=== PATIENT | male | born 1980 | race Caucasian/White ===

== ENCOUNTER 2020-10-27 14:26 | Inpatient (IN) | payer OTHER ==
[2020-10-27] MEDS ORDERED: methaDONE HCL 10 MG TABLET (FOR DETOX USE ONLY) PO ONE (15:37)
[2020-10-27] MEDS ORDERED: MAG HYDROX/AL HYDROX/SIMETH 30 ML UNIT-DOSE CUP PO PRN (15:37)
[2020-10-27] MEDS ORDERED: MAGNESIUM HYDROX 2400MG/30ML ORAL SUSPENSION 30 ML CUP PO PRN (15:37)
[2020-10-27] MEDS ORDERED: IBUPROFEN 400 MG TABLET (FP) PO PRN (15:37)
[2020-10-27] MEDS ORDERED: ACETAMINOPHEN 325 MG TABLET (FP) PO PRN ×2 (15:37)
[2020-10-27] MEDS ORDERED: BISMUTH SUBSALICYLATE 524 MG/30 ML PO PRN (15:37)
[2020-10-27] MEDS ORDERED: MAGNESIUM CITRATE 300 ML BOTTLE PO PRN (15:37)
[2020-10-27] MEDS ORDERED: MENTHOL/PHENOL 1 EACH UD MM PRN (15:37)
[2020-10-27 17:23] VITALS: BMI 21.9
[2020-10-27] MEDS: NICOTINE 21 MG/24 HOURS TOPICAL PATCH TD SCH (17:56)
[2020-10-27] MEDS: diazePAM 5 MG TABLET PO PRN (18:01)
[2020-10-27] MEDS: BACITRACIN 0.9 GM PACKET TP SCH (18:04)
[2020-10-27] MEDS: PRENATAL VITAMINS W/ FOLIC ACID TABLET (FP) PO SCH (18:04)
[2020-10-27] MEDS: NICOTINE POLACRILEX 4 MG GUM BUC PRN ×2 (18:07→22:14)
[2020-10-27] MEDS: hydrOXYzine PAMOATE 25 MG CAPSULE (FP) PO SCH ×2 (18:27→22:09)
[2020-10-27] MEDS: diazePAM 5 MG TABLET PO SCH ×2 (18:27→22:08)
[2020-10-27] MEDS: cloNIDine HCL 0.1 MG TABLET PO PRN (21:05)
[2020-10-27] MEDS: THIAMINE HCL 100 MG TABLET (FP) PO SCH (22:09)
[2020-10-27] MEDS: MELATONIN 5 MG TABLETS PO SCH (22:09)
[2020-10-28] MEDS: diazePAM 5 MG TABLET PO SCH ×4 (05:44→22:10)
[2020-10-28] MEDS: hydrOXYzine PAMOATE 25 MG CAPSULE (FP) PO SCH (05:44)
[2020-10-28] MEDS: ONDANSETRON *ODT* 4 MG TABLET SL PRN (05:45)
[2020-10-28] MEDS: METHOCARBAMOL 500 MG TABLET PO PRN ×2 (05:45→17:10)
[2020-10-28] MEDS ORDERED: hydrOXYzine PAMOATE 50 MG CAPSULE (FP) PO PRN (09:23)
[2020-10-28] MEDS ORDERED: methaDONE HCL 10 MG TABLET (FOR DETOX USE ONLY) ONE (09:24)
[2020-10-28] MEDS: PRENATAL VITAMINS W/ FOLIC ACID TABLET (FP) PO SCH (10:26)
[2020-10-28] MEDS: BACITRACIN 0.9 GM PACKET TP SCH (10:27)
[2020-10-28] MEDS: NICOTINE POLACRILEX 4 MG GUM BUC PRN ×3 (10:28→22:13)
[2020-10-28 10:30] LABS: HEMATOCRIT 40.6 % (35.4-49); HEMOGLOBIN 13.4 GM/dL (11.7-16.9); MEAN CELL VOLUME 87.9 fl (80-96); MEAN PLT VOLUME 8.1 fl (7.5-11.1); PLATELET COUNT 202 10^3/uL (134-434); RBC 4.61 M/mm3 (4.00-5.60); WHITE BLOOD COUNT 5.8 K/mm3 (4.0-10.0)
[2020-10-28 10:33] LABS: CALCIUM 9.1 mg/dL (8.5-10.1)
[2020-10-28 10:34] LABS: ALBUMIN 3.2 g/dl (3.4-5.0); BLOOD UREA NITROGEN 16.4 mg/dL (7-18)
[2020-10-28 10:36] LABS: BILIRUBIN,TOTAL 0.4 mg/dL (0.2-1); TOT PROT 6.6 g/dl (6.4-8.2)
[2020-10-28 10:37] LABS: CREATININE 1.1 mg/dL (0.55-1.3)
[2020-10-28] MEDS: NICOTINE 21 MG/24 HOURS TOPICAL PATCH TD SCH (11:50)
[2020-10-28] MEDS: diazePAM 5 MG TABLET PO PRN (14:10)
[2020-10-28] MEDS: THIAMINE HCL 100 MG TABLET (FP) PO SCH (22:11)
[2020-10-28] MEDS: MELATONIN 5 MG TABLETS PO SCH (22:12)
[2020-10-28] MEDS: SUVOREXANT 10 MG TABLET PO PRN (22:12)
[2020-10-29] MEDS: diazePAM 5 MG TABLET PO SCH ×3 (05:37→22:14)
[2020-10-29] MEDS ORDERED: methaDONE HCL 10 MG TABLET (FOR DETOX USE ONLY) PO ONE (10:00)
[2020-10-29] MEDS: PRENATAL VITAMINS W/ FOLIC ACID TABLET (FP) PO SCH (10:18)
[2020-10-29] MEDS: BACITRACIN 0.9 GM PACKET TP SCH (10:19)
[2020-10-29] MEDS: ONDANSETRON *ODT* 4 MG TABLET SL PRN (10:20)
[2020-10-29] MEDS: METHOCARBAMOL 500 MG TABLET PO PRN ×2 (10:20→22:13)
[2020-10-29] MEDS: diazePAM 5 MG TABLET PO PRN ×2 (10:22→18:00)
[2020-10-29] MEDS: NICOTINE 21 MG/24 HOURS TOPICAL PATCH TD SCH (12:36)
[2020-10-29] MEDS: THIAMINE HCL 100 MG TABLET (FP) PO SCH (22:13)
[2020-10-29] MEDS: MELATONIN 5 MG TABLETS PO SCH (22:15)
[2020-10-29] MEDS: SUVOREXANT 10 MG TABLET PO PRN (22:16)
[2020-10-29] MEDS: cloNIDine HCL 0.1 MG TABLET PO PRN (22:16)
[2020-10-30] MEDS ORDERED: diazePAM 5 MG TABLET PO SCH (06:00)
[2020-10-30] MEDS: METHOCARBAMOL 500 MG TABLET PO PRN ×2 (06:04→12:41)
[2020-10-30] MEDS ORDERED: methaDONE HCL 10 MG TABLET (FOR DETOX USE ONLY) ONE (09:20)
[2020-10-30] MEDS: diazePAM 5 MG TABLET PO PRN (09:41)
[2020-10-30] MEDS: PRENATAL VITAMINS W/ FOLIC ACID TABLET (FP) PO SCH (09:43)
[2020-10-30] MEDS: NICOTINE 21 MG/24 HOURS TOPICAL PATCH TD SCH (12:41)
[2020-10-30 13:23] VITALS: BP 139/100; PULSE 69; TEMP 98
[2020-10-30] MEDS: BACITRACIN 0.9 GM PACKET TP SCH (13:31)
[2020-10-31] MEDS ORDERED: diazePAM 5 MG TABLET PO ONE (06:00)
[2020-10-31] MEDS ORDERED: methaDONE HCL 10 MG TABLET (FOR DETOX USE ONLY) PO ONE (10:00)
== END 2020-10-30 15:09 | disposition left against medical advice (07) | DRG 770 ==
LOC: YASAS 14:26 → Y6N 17:01
PROVIDERS: ADMIT Allergy & Immunology; ATTEND Allergy & Immunology
PROC: HZ2ZZZZ Detoxification Services for Substance Abuse Treatment (ICD-10-PCS; principal; 2020-10-27)
DX: F11.23 Opioid dependence with withdrawal (principal); F10.230 Alcohol dependence with withdrawal, uncomplicated; F13.20 Sedative, hypnotic or anxiolytic dependence, uncomplicated; F14.20 Cocaine dependence, uncomplicated; F15.10 Other stimulant abuse, uncomplicated; F12.10 Cannabis abuse, uncomplicated; F17.210 Nicotine dependence, cigarettes, uncomplicated; F19.280 Other psychoactive substance dependence with psychoactive substance-induced anxiety disorder; F19.282 Other psychoactive substance dependence with psychoactive substance-induced sleep disorder; F41.9 Anxiety disorder, unspecified; I10 Essential (primary) hypertension; J45.909 Unspecified asthma, uncomplicated; B18.2 Chronic viral hepatitis C; Z86.69 Personal history of other diseases of the nervous system and sense organs; Z88.8 Allergy status to other drugs, medicaments and biological substances; Z91.013 Allergy to seafood
CPT/HCPCS: 36415; 80053; 85027; 86780; 93005; 93010; C9803; J0735; Q0162; U0003; U0005

== ENCOUNTER 2021-05-24 14:08 | Inpatient (IN) | payer OTHER ==
[2021-05-24] MEDS ORDERED: ONDANSETRON *ODT* 4 MG TABLET SL PRN (15:47)
[2021-05-24] MEDS ORDERED: ACETAMINOPHEN 325 MG TABLET (FP) PO PRN ×2 (15:47)
[2021-05-24] MEDS ORDERED: MENTHOL/PHENOL 1 EACH UD MM PRN (15:47)
[2021-05-24] MEDS ORDERED: MAGNESIUM HYDROX 2400MG/30ML ORAL SUSPENSION 30 ML CUP PO PRN (15:47)
[2021-05-24] MEDS ORDERED: BISMUTH SUBSALICYLATE 524 MG/30 ML PO PRN (15:47)
[2021-05-24] MEDS ORDERED: MAGNESIUM CITRATE 300 ML BOTTLE PO PRN (15:47)
[2021-05-24] MEDS ORDERED: IBUPROFEN 400 MG TABLET (FP) PO PRN (15:47)
[2021-05-24] MEDS ORDERED: methaDONE HCL 10 MG TABLET (FOR DETOX USE ONLY) PO ONE ×2 (15:49→22:00)
[2021-05-24] MEDS ORDERED: cloNIDine HCL 0.1 MG TABLET PO PRN (15:49)
[2021-05-24 16:02] VITALS: BMI 23.3
[2021-05-24] MEDS: THIAMINE HCL 100 MG TABLET (FP) PO SCH (22:26)
[2021-05-24] MEDS: hydrOXYzine PAMOATE 25 MG CAPSULE (FP) PO SCH ×2 (22:26→22:43)
[2021-05-24] MEDS: MELATONIN 5 MG TABLETS PO SCH (22:26)
[2021-05-24] MEDS: MAG HYDROX/AL HYDROX/SIMETH 30 ML UNIT-DOSE CUP PO PRN (23:08)
[2021-05-24] MEDS: COLLOIDAL OATMEAL 1 BAR EACH TP PRN (23:10)
[2021-05-24] MEDS ORDERED: chlordiazePOXIDE HCL 25 MG CAPSULE PO PRN (23:15)
[2021-05-24] MEDS: chlordiazePOXIDE HCL 25 MG CAPSULE PO SCH (23:36)
[2021-05-25] MEDS: chlordiazePOXIDE HCL 25 MG CAPSULE PO SCH ×2 (06:14→10:21)
[2021-05-25] MEDS: hydrOXYzine PAMOATE 25 MG CAPSULE (FP) PO SCH ×5 (06:14→22:19)
[2021-05-25] MEDS ORDERED: methaDONE HCL 10 MG TABLET (FOR DETOX USE ONLY) ONE (09:48)
[2021-05-25] MEDS: METHOCARBAMOL 500 MG TABLET PO PRN ×2 (10:21→22:19)
[2021-05-25] MEDS: PRENATAL VITAMINS W/ FOLIC ACID TABLET (FP) PO SCH (10:21)
[2021-05-25] MEDS ORDERED: diazePAM 5 MG TABLET PO PRN (11:00)
[2021-05-25 11:58] LABS: HEMATOCRIT 32.3 % (35.4-49); HEMOGLOBIN 11.1 GM/dL (11.7-16.9); MCH 29.8 pg (25.7-33.7); MCHC 34.4 g/dl (32.0-35.9); MEAN CELL VOLUME 86.5 fl (80-96); PLATELET COUNT 143 10^3/uL (134-434); RBC 3.73 M/mm3 (4.00-5.60); RDW 13.1 % (11.9-15.9); WHITE BLOOD COUNT 10.3 K/mm3 (4.0-10.0)
[2021-05-25] MEDS: diazePAM 5 MG TABLET PO SCH ×3 (12:33→22:18)
[2021-05-25 13:16] LABS: CALCIUM 8.3 mg/dL (8.5-10.1)
[2021-05-25 13:17] LABS: BLOOD UREA NITROGEN 25.1 mg/dL (7-18)
[2021-05-25 13:21] LABS: TOT PROT 5.8 g/dl (6.4-8.2)
[2021-05-25 13:22] LABS: BILIRUBIN,TOTAL 0.7 mg/dL (0.2-1)
[2021-05-25] MEDS: diazePAM 5 MG TABLET PO PRN (19:17)
[2021-05-25] MEDS: MELATONIN 5 MG TABLETS PO SCH (22:17)
[2021-05-25] MEDS: THIAMINE HCL 100 MG TABLET (FP) PO SCH (22:19)
[2021-05-26] MEDS: diazePAM 5 MG TABLET PO PRN ×3 (00:33→17:40)
[2021-05-26] MEDS: MAG HYDROX/AL HYDROX/SIMETH 30 ML UNIT-DOSE CUP PO PRN (00:33)
[2021-05-26] MEDS ORDERED: chlordiazePOXIDE HCL 25 MG CAPSULE PO SCH (05:00)
[2021-05-26] MEDS: hydrOXYzine PAMOATE 25 MG CAPSULE (FP) PO SCH ×5 (05:36→22:14)
[2021-05-26] MEDS: diazePAM 5 MG TABLET PO SCH ×3 (05:36→22:15)
[2021-05-26] MEDS ORDERED: methaDONE HCL 10 MG TABLET (FOR DETOX USE ONLY) PO ONE (10:00)
[2021-05-26] MEDS: METHOCARBAMOL 500 MG TABLET PO PRN ×2 (10:19→22:14)
[2021-05-26] MEDS: PRENATAL VITAMINS W/ FOLIC ACID TABLET (FP) PO SCH (10:20)
[2021-05-26] MEDS: THIAMINE HCL 100 MG TABLET (FP) PO SCH (22:14)
[2021-05-26] MEDS: MELATONIN 5 MG TABLETS PO SCH (22:14)
[2021-05-27] MEDS ORDERED: chlordiazePOXIDE HCL 10 MG CAPSULE PO PRN
[2021-05-27] MEDS ORDERED: chlordiazePOXIDE HCL 10 MG CAPSULE PO SCH (05:00)
[2021-05-27] MEDS: hydrOXYzine PAMOATE 25 MG CAPSULE (FP) PO SCH ×5 (05:46→22:00)
[2021-05-27] MEDS: diazePAM 5 MG TABLET PO PRN ×2 (05:46→16:05)
[2021-05-27] MEDS ORDERED: methaDONE HCL 10 MG TABLET (FOR DETOX USE ONLY) ONE (09:32)
[2021-05-27] MEDS: diazePAM 5 MG TABLET PO SCH ×2 (10:47→22:01)
[2021-05-27] MEDS: PRENATAL VITAMINS W/ FOLIC ACID TABLET (FP) PO SCH (10:47)
[2021-05-27] MEDS: MAG HYDROX/AL HYDROX/SIMETH 30 ML UNIT-DOSE CUP PO PRN ×2 (14:12→22:00)
[2021-05-27] MEDS: NICOTINE 10 MG CARTRIDGE (INHALER) IH PRN ×3 (15:30→22:49)
[2021-05-27] MEDS ORDERED: LOPERAMIDE HCL 2 MG CAPSULE PO PRN (15:38)
[2021-05-27] MEDS: THIAMINE HCL 100 MG TABLET (FP) PO SCH (22:00)
[2021-05-27] MEDS: METHOCARBAMOL 500 MG TABLET PO PRN (22:00)
[2021-05-27] MEDS: MELATONIN 5 MG TABLETS PO SCH (22:00)
[2021-05-28] MEDS ORDERED: chlordiazePOXIDE HCL 10 MG CAPSULE PO SCH (05:00)
[2021-05-28] MEDS ORDERED: diazePAM 5 MG TABLET PO ONE (06:00)
[2021-05-28] MEDS: hydrOXYzine PAMOATE 25 MG CAPSULE (FP) PO SCH ×5 (06:39→22:33)
[2021-05-28] MEDS: METHOCARBAMOL 500 MG TABLET PO PRN ×2 (06:41→23:42)
[2021-05-28] MEDS ORDERED: methaDONE HCL 10 MG TABLET (FOR DETOX USE ONLY) PO ONE (10:00)
[2021-05-28] MEDS: diazePAM 5 MG TABLET PO PRN ×4 (10:45→23:41)
[2021-05-28] MEDS: NICOTINE 10 MG CARTRIDGE (INHALER) IH PRN ×4 (10:45→23:42)
[2021-05-28] MEDS: PRENATAL VITAMINS W/ FOLIC ACID TABLET (FP) PO SCH (10:46)
[2021-05-28] MEDS: COLLOIDAL OATMEAL 1 BAR EACH TP PRN (10:55)
[2021-05-28] MEDS: MELATONIN 5 MG TABLETS PO SCH (22:33)
[2021-05-28] MEDS: THIAMINE HCL 100 MG TABLET (FP) PO SCH (22:33)
[2021-05-29] MEDS ORDERED: chlordiazePOXIDE HCL 10 MG CAPSULE PO ONE (05:00)
[2021-05-29] MEDS: diazePAM 5 MG TABLET PO PRN (06:15)
[2021-05-29] MEDS: hydrOXYzine PAMOATE 25 MG CAPSULE (FP) PO SCH ×2 (06:18→10:42)
[2021-05-29] MEDS: NICOTINE 10 MG CARTRIDGE (INHALER) IH PRN (06:19)
[2021-05-29 09:49] VITALS: BP 138/85; PULSE 110; TEMP 97.5
[2021-05-29] MEDS: PRENATAL VITAMINS W/ FOLIC ACID TABLET (FP) PO SCH (10:41)
[2021-05-30 00:06] LABS: SARS-CoV-2 NAA Not Detected (Not Detected)
== END 2021-05-29 10:44 | disposition home or self-care (01) | DRG 773 ==
LOC: YASAS 14:08 → Y3N 21:13 → MERGE 21:13
PROVIDERS: ADMIT Allergy & Immunology; ATTEND Allergy & Immunology
PROC: HZ2ZZZZ Detoxification Services for Substance Abuse Treatment (ICD-10-PCS; principal; 2021-05-24)
DX: F11.23 Opioid dependence with withdrawal (principal); F10.230 Alcohol dependence with withdrawal, uncomplicated; F14.20 Cocaine dependence, uncomplicated; F17.210 Nicotine dependence, cigarettes, uncomplicated; F41.9 Anxiety disorder, unspecified; I10 Essential (primary) hypertension; B18.2 Chronic viral hepatitis C; Z88.8 Allergy status to other drugs, medicaments and biological substances; Z91.018 Allergy to other foods; Z91.013 Allergy to seafood
CPT/HCPCS: 36415; 80053; 85027; 86780; 93005; 93010; C9803; J0735; U0003; U0005

== ENCOUNTER 2021-07-01 08:17 | Inpatient (IN) | payer OTHER ==
[2021-07-01 08:53] VITALS: BMI 23.2
[2021-07-01] MEDS ORDERED: ONDANSETRON *ODT* 4 MG TABLET SL PRN (10:46)
[2021-07-01] MEDS ORDERED: IBUPROFEN 400 MG TABLET (FP) PO PRN (10:46)
[2021-07-01] MEDS ORDERED: methaDONE HCL 10 MG TABLET (FOR DETOX USE ONLY) PO ONE (10:46)
[2021-07-01] MEDS ORDERED: MAG HYDROX/AL HYDROX/SIMETH 30 ML UNIT-DOSE CUP PO PRN (10:46)
[2021-07-01] MEDS ORDERED: MAGNESIUM CITRATE 300 ML BOTTLE PO PRN (10:46)
[2021-07-01] MEDS ORDERED: cloNIDine HCL 0.1 MG TABLET PO PRN (10:46)
[2021-07-01] MEDS ORDERED: MAGNESIUM HYDROX 2400MG/30ML ORAL SUSPENSION 30 ML CUP PO PRN (10:46)
[2021-07-01] MEDS ORDERED: NALOXONE (NARCAN) HCL 4 MG/0.1 ML SPRAY NS PRN ×2 (10:46→10:52)
[2021-07-01] MEDS ORDERED: BISMUTH SUBSALICYLATE 262 MG/15 ML BTL PO PRN (10:46)
[2021-07-01] MEDS ORDERED: ACETAMINOPHEN 325 MG TABLET (FP) PO PRN ×2 (10:46)
[2021-07-01] MEDS ORDERED: LOPERAMIDE HCL 2 MG CAPSULE PO PRN (10:46)
[2021-07-01] MEDS ORDERED: MENTHOL/PHENOL 1 EACH UD MM PRN (10:46)
[2021-07-01] MEDS: diazePAM 5 MG TABLET PO SCH ×3 (12:55→22:50)
[2021-07-01] MEDS: METHOCARBAMOL 500 MG TABLET PO PRN (12:56)
[2021-07-01] MEDS: hydrOXYzine PAMOATE 25 MG CAPSULE (FP) PO SCH ×3 (13:43→22:50)
[2021-07-01] MEDS: NICOTINE 10 MG CARTRIDGE (INHALER) IH PRN ×3 (15:25→22:48)
[2021-07-01] MEDS: diazePAM 5 MG TABLET PO PRN (18:58)
[2021-07-01] MEDS: MELATONIN 5 MG TABLETS PO SCH (22:50)
[2021-07-01] MEDS: THIAMINE HCL 100 MG TABLET (FP) PO SCH (22:50)
[2021-07-02] MEDS: hydrOXYzine PAMOATE 25 MG CAPSULE (FP) PO SCH ×5 (06:54→23:50)
[2021-07-02] MEDS: diazePAM 5 MG TABLET PO SCH ×4 (06:54→23:49)
[2021-07-02] MEDS ORDERED: methaDONE HCL 10 MG TABLET (FOR DETOX USE ONLY) ONE (09:24)
[2021-07-02] MEDS: PRENATAL VITAMINS W/ FOLIC ACID TABLET (FP) PO SCH (10:33)
[2021-07-02] MEDS: METHOCARBAMOL 500 MG TABLET PO PRN ×2 (10:36→18:46)
[2021-07-02] MEDS: diazePAM 5 MG TABLET PO PRN (13:53)
[2021-07-02 14:31] LABS: HEMATOCRIT 39.4 % (35.4-49); HEMOGLOBIN 13.1 GM/dL (11.7-16.9); MCH 29.4 pg (25.7-33.7); MCHC 33.3 g/dl (32.0-35.9); MEAN CELL VOLUME 88.4 fl (80-96); MEAN PLT VOLUME 8.4 fl (7.5-11.1); PLATELET COUNT 203 10^3/uL (134-434); RBC 4.46 M/mm3 (4.00-5.60); RDW 14.3 % (11.9-15.9); WHITE BLOOD COUNT 7.5 K/mm3 (4.0-10.0)
[2021-07-02 14:41] LABS: CALCIUM 9.3 mg/dL (8.5-10.1)
[2021-07-02 14:42] LABS: ALBUMIN 3.7 g/dl (3.4-5.0); BLOOD UREA NITROGEN 20.2 mg/dL (7-18)
[2021-07-02 14:44] LABS: CREATININE 0.9 mg/dL (0.55-1.3)
[2021-07-02 14:46] LABS: BILIRUBIN,TOTAL 0.5 mg/dL (0.2-1); TOT PROT 7.3 g/dl (6.4-8.2)
[2021-07-02] MEDS: MELATONIN 5 MG TABLETS PO SCH (23:49)
[2021-07-02] MEDS: THIAMINE HCL 100 MG TABLET (FP) PO SCH (23:50)
[2021-07-03] MEDS ORDERED: diazePAM 5 MG TABLET PO SCH (06:00)
[2021-07-03] MEDS: hydrOXYzine PAMOATE 25 MG CAPSULE (FP) PO SCH ×2 (06:17→10:20)
[2021-07-03 08:07] LABS: SARS-CoV-2 NAA Not Detected (Not Detected)
[2021-07-03] MEDS ORDERED: methaDONE HCL 10 MG TABLET (FOR DETOX USE ONLY) PO ONE (10:00)
[2021-07-03] MEDS: diazePAM 5 MG TABLET PO PRN (10:20)
[2021-07-03] MEDS: PRENATAL VITAMINS W/ FOLIC ACID TABLET (FP) PO SCH (10:20)
[2021-07-03] MEDS: NICOTINE 10 MG CARTRIDGE (INHALER) IH PRN (11:26)
[2021-07-03 14:09] VITALS: BP 148/99; PULSE 95; TEMP 96.8
[2021-07-04] MEDS ORDERED: diazePAM 5 MG TABLET PO SCH (06:00)
[2021-07-05] MEDS ORDERED: diazePAM 5 MG TABLET PO ONE (06:00)
[2021-07-05] MEDS ORDERED: methaDONE HCL 10 MG TABLET (FOR DETOX USE ONLY) PO ONE (10:00)
== END 2021-07-03 13:30 | disposition home or self-care (01) | DRG 773 ==
LOC: YASAS 08:17 → Y6N 12:23
PROVIDERS: ADMIT Allergy & Immunology; ATTEND Allergy & Immunology
PROC: HZ2ZZZZ Detoxification Services for Substance Abuse Treatment (ICD-10-PCS; principal; 2021-07-01)
DX: F11.23 Opioid dependence with withdrawal (principal); F10.230 Alcohol dependence with withdrawal, uncomplicated; F14.20 Cocaine dependence, uncomplicated; F17.210 Nicotine dependence, cigarettes, uncomplicated; F41.9 Anxiety disorder, unspecified; I10 Essential (primary) hypertension; B18.2 Chronic viral hepatitis C; Z88.8 Allergy status to other drugs, medicaments and biological substances; Z91.018 Allergy to other foods; Z91.013 Allergy to seafood
CPT/HCPCS: 36415; 80053; 82962; 85027; 86780; 87811; C9803-CS; U0003; U0005

== ENCOUNTER 2021-08-19 08:31 | Inpatient (IN) | payer OTHER ==
[2021-08-19 09:05] VITALS: BMI 20.5
[2021-08-19] MEDS ORDERED: cloNIDine HCL 0.1 MG TABLET PO PRN (09:50)
[2021-08-19] MEDS ORDERED: LOPERAMIDE HCL 2 MG CAPSULE PO PRN (09:50)
[2021-08-19] MEDS ORDERED: MAGNESIUM HYDROX 2400MG/30ML ORAL SUSPENSION 30 ML CUP PO PRN (09:50)
[2021-08-19] MEDS ORDERED: IBUPROFEN 400 MG TABLET (FP) PO PRN (09:50)
[2021-08-19] MEDS ORDERED: MAG HYDROX/AL HYDROX/SIMETH 30 ML UNIT-DOSE CUP PO PRN (09:50)
[2021-08-19] MEDS ORDERED: MAGNESIUM CITRATE 300 ML BOTTLE PO PRN (09:50)
[2021-08-19] MEDS ORDERED: BENZOCAINE/MENTHOL (CHLORASEPTIC ) LOZENGE MM PRN (09:50)
[2021-08-19] MEDS ORDERED: BISMUTH SUBSALICYLATE 262 MG/15 ML BTL PO PRN (09:50)
[2021-08-19] MEDS ORDERED: ONDANSETRON *ODT* 4 MG TABLET SL PRN (09:50)
[2021-08-19] MEDS ORDERED: DICYCLOMINE HCL 10 MG CAPSULE PO PRN (09:50)
[2021-08-19] MEDS ORDERED: ACETAMINOPHEN 325 MG TABLET (FP) PO PRN ×2 (09:50)
[2021-08-19] MEDS ORDERED: NALOXONE HCL (KLOXXADO) 8 MG SPRAY NS SCH (10:00)
[2021-08-19] MEDS ORDERED: methaDONE HCL 10 MG TABLET (FOR DETOX USE ONLY) ONE (10:54)
[2021-08-19] MEDS ORDERED: diazePAM 5 MG TABLET ONE (10:54)
[2021-08-19] MEDS ORDERED: hydrOXYzine PAMOATE 25 MG CAPSULE (FP) PO ONE (10:54)
[2021-08-19] MEDS: hydrOXYzine PAMOATE 25 MG CAPSULE (FP) PO SCH ×4 (10:57→22:46)
[2021-08-19] MEDS: diazePAM 5 MG TABLET PO SCH ×3 (10:57→22:51)
[2021-08-19] MEDS ORDERED: methaDONE HCL 10 MG TABLET (FOR DETOX USE ONLY) PO ONE (11:00)
[2021-08-19] MEDS ORDERED: AMOX TR/POT CLAV 875MG/125MG TABLETS (FP) PO ONE (12:00)
[2021-08-19 13:13] LABS: HEMATOCRIT 35.3 % (35.4-49); HEMOGLOBIN 11.9 GM/dL (11.7-16.9); MCHC 33.7 g/dl (32.0-35.9); MEAN CELL VOLUME 85.9 fl (80-96); MEAN PLT VOLUME 7.3 fl (7.5-11.1); PLATELET COUNT 315 10^3/uL (134-434); RBC 4.11 M/mm3 (4.00-5.60); RDW 12.8 % (11.9-15.9); WHITE BLOOD COUNT 10.2 K/mm3 (4.0-10.0)
[2021-08-19] MEDS: diazePAM 5 MG TABLET PO PRN ×2 (13:21→22:48)
[2021-08-19] MEDS: PRENATAL VITAMINS W/ FOLIC ACID TABLET (FP) PO SCH (13:22)
[2021-08-19 13:30] LABS: CALCIUM 8.9 mg/dL (8.5-10.1)
[2021-08-19 13:31] LABS: BLOOD UREA NITROGEN 29.9 mg/dL (7-18); CREATININE 1.1 mg/dL (0.55-1.3)
[2021-08-19 13:33] LABS: BILIRUBIN,TOTAL 0.3 mg/dL (0.2-1); TOT PROT 6.5 g/dl (6.4-8.2)
[2021-08-19] MEDS: AMOX TR/POT CLAV 875MG/125MG TABLETS (FP) PO SCH (18:42)
[2021-08-19] MEDS: NICOTINE 10 MG CARTRIDGE (INHALER) IH PRN (18:54)
[2021-08-19] MEDS: THIAMINE HCL 100 MG TABLET (FP) PO SCH (22:46)
[2021-08-19] MEDS: MELATONIN 5 MG TABLETS PO SCH (22:46)
[2021-08-20] MEDS: diazePAM 5 MG TABLET PO SCH ×4 (06:15→22:43)
[2021-08-20] MEDS: hydrOXYzine PAMOATE 25 MG CAPSULE (FP) PO SCH ×5 (06:15→22:44)
[2021-08-20] MEDS: AMOX TR/POT CLAV 875MG/125MG TABLETS (FP) PO SCH ×2 (07:44→17:41)
[2021-08-20] MEDS ORDERED: methaDONE HCL 10 MG TABLET (FOR DETOX USE ONLY) ONE (09:07)
[2021-08-20] MEDS: PRENATAL VITAMINS W/ FOLIC ACID TABLET (FP) PO SCH (10:10)
[2021-08-20] MEDS: NICOTINE 10 MG CARTRIDGE (INHALER) IH PRN ×3 (10:13→22:44)
[2021-08-20] MEDS: METHOCARBAMOL 500 MG TABLET PO PRN ×2 (10:13→17:43)
[2021-08-20] MEDS: diazePAM 5 MG TABLET PO PRN ×2 (12:28→20:23)
[2021-08-20] MEDS: THIAMINE HCL 100 MG TABLET (FP) PO SCH (22:44)
[2021-08-20] MEDS: MELATONIN 5 MG TABLETS PO SCH (22:44)
[2021-08-21] MEDS: hydrOXYzine PAMOATE 25 MG CAPSULE (FP) PO SCH ×5 (06:19→23:06)
[2021-08-21] MEDS: diazePAM 5 MG TABLET PO SCH ×3 (06:23→23:06)
[2021-08-21] MEDS ORDERED: methaDONE HCL 10 MG TABLET (FOR DETOX USE ONLY) PO ONE (10:00)
[2021-08-21] MEDS: AMOX TR/POT CLAV 875MG/125MG TABLETS (FP) PO SCH ×2 (10:13→17:44)
[2021-08-21] MEDS: METHOCARBAMOL 500 MG TABLET PO PRN (10:13)
[2021-08-21] MEDS: PRENATAL VITAMINS W/ FOLIC ACID TABLET (FP) PO SCH (10:13)
[2021-08-21] MEDS: diazePAM 5 MG TABLET PO PRN ×2 (10:16→17:45)
[2021-08-21 12:09] LABS: SARS-CoV-2 NAA Not Detected (Not Detected)
[2021-08-21] MEDS: MELATONIN 5 MG TABLETS PO SCH (23:06)
[2021-08-21] MEDS: THIAMINE HCL 100 MG TABLET (FP) PO SCH (23:07)
[2021-08-22] MEDS: diazePAM 5 MG TABLET PO SCH ×2 (06:15→17:12)
[2021-08-22] MEDS: hydrOXYzine PAMOATE 25 MG CAPSULE (FP) PO SCH ×5 (06:15→22:27)
[2021-08-22] MEDS: AMOX TR/POT CLAV 875MG/125MG TABLETS (FP) PO SCH ×2 (07:26→17:11)
[2021-08-22] MEDS ORDERED: methaDONE HCL 10 MG TABLET (FOR DETOX USE ONLY) ONE (09:19)
[2021-08-22] MEDS: METHOCARBAMOL 500 MG TABLET PO PRN ×2 (09:24→22:27)
[2021-08-22] MEDS: PRENATAL VITAMINS W/ FOLIC ACID TABLET (FP) PO SCH (09:24)
[2021-08-22] MEDS: diazePAM 5 MG TABLET PO PRN (09:25)
[2021-08-22] MEDS: NICOTINE 10 MG CARTRIDGE (INHALER) IH PRN ×2 (10:51→15:10)
[2021-08-22 21:14] VITALS: BP 137/90; PULSE 94; TEMP 97.7
[2021-08-22] MEDS: THIAMINE HCL 100 MG TABLET (FP) PO SCH (22:27)
[2021-08-22] MEDS: MELATONIN 5 MG TABLETS PO SCH (22:27)
[2021-08-23] MEDS ORDERED: diazePAM 5 MG TABLET PO ONE (06:00)
[2021-08-23] MEDS ORDERED: methaDONE HCL 10 MG TABLET (FOR DETOX USE ONLY) PO ONE (10:00)
== END 2021-08-22 23:59 | disposition left against medical advice (07) | DRG 770 ==
LOC: YASAS 08:31 → Y3N 12:01
PROVIDERS: ADMIT Allergy & Immunology; ATTEND Allergy & Immunology
PROC: HZ2ZZZZ Detoxification Services for Substance Abuse Treatment (ICD-10-PCS; principal; 2021-08-19)
DX: F11.23 Opioid dependence with withdrawal (principal); F10.230 Alcohol dependence with withdrawal, uncomplicated; F14.20 Cocaine dependence, uncomplicated; F13.20 Sedative, hypnotic or anxiolytic dependence, uncomplicated; F12.20 Cannabis dependence, uncomplicated; F17.210 Nicotine dependence, cigarettes, uncomplicated; F19.280 Other psychoactive substance dependence with psychoactive substance-induced anxiety disorder; E88.09 Other disorders of plasma-protein metabolism, not elsewhere classified; D72.829 Elevated white blood cell count, unspecified; I10 Essential (primary) hypertension; B18.2 Chronic viral hepatitis C; R79.89 Other specified abnormal findings of blood chemistry
CPT/HCPCS: 36415; 80053; 85027; 86780; 87811; C9803-CS; J0735; U0003; U0005

== ENCOUNTER 2021-09-15 17:33 | Inpatient (IN) | payer OTHER ==
[2021-09-15 18:25] VITALS: BMI 20.9
[2021-09-15] MEDS ORDERED: P-EPHED 60MG/TRIPROLIDI 2.5MG TABLET PO PRN (20:53)
[2021-09-15] MEDS ORDERED: MAGNESIUM CITRATE 300 ML BOTTLE PO PRN (20:53)
[2021-09-15] MEDS ORDERED: BENZOCAINE/MENTHOL (CHLORASEPTIC ) LOZENGE MM PRN (20:53)
[2021-09-15] MEDS ORDERED: ONDANSETRON *ODT* 4 MG TABLET SL PRN (20:53)
[2021-09-15] MEDS ORDERED: IBUPROFEN 600 MG TABLET (FP) PO PRN (20:53)
[2021-09-15] MEDS ORDERED: MAGNESIUM HYDROX 2400MG/30ML ORAL SUSPENSION 30 ML CUP PO PRN (20:53)
[2021-09-15] MEDS ORDERED: NICOTINE 10 MG CARTRIDGE (INHALER) IH PRN (20:53)
[2021-09-15] MEDS ORDERED: BISMUTH SUBSALICYLATE 524 MG/30 ML PO PRN (20:53)
[2021-09-15] MEDS ORDERED: LOPERAMIDE HCL 2 MG CAPSULE PO PRN (20:53)
[2021-09-15] MEDS ORDERED: ACETAMINOPHEN 325 MG TABLET (FP) PO PRN (20:53)
[2021-09-15] MEDS ORDERED: DICYCLOMINE HCL 10 MG CAPSULE PO PRN (20:53)
[2021-09-15] MEDS ORDERED: IBUPROFEN 400 MG TABLET (FP) PO PRN (20:53)
[2021-09-15] MEDS ORDERED: MAG HYDROX/AL HYDROX/SIMETH 30 ML UNIT-DOSE CUP PO PRN (20:53)
[2021-09-16] MEDS ORDERED: cloNIDine HCL 0.1 MG TABLET PO ONE (01:28)
[2021-09-16] MEDS: ACETAMINOPHEN 325 MG TABLET (FP) PO PRN (01:48)
[2021-09-16] MEDS: THIAMINE HCL 100 MG TABLET (FP) PO SCH ×2 (01:49→21:54)
[2021-09-16] MEDS: PRENATAL VITAMINS W/ FOLIC ACID TABLET (FP) PO SCH (10:56)
[2021-09-16 11:09] LABS: HEMATOCRIT 39.7 % (35.4-49); HEMOGLOBIN 13.1 GM/dL (11.7-16.9); MCH 28.8 pg (25.7-33.7); MCHC 33.1 g/dl (32.0-35.9); MEAN CELL VOLUME 87.1 fl (80-96); MEAN PLT VOLUME 7.9 fl (7.5-11.1); PLATELET COUNT 217 10^3/uL (134-434); RBC 4.56 M/mm3 (4.00-5.60); RDW 13.3 % (11.9-15.9); WHITE BLOOD COUNT 4.4 K/mm3 (4.0-10.0)
[2021-09-16 11:22] LABS: ALBUMIN 3.1 g/dl (3.4-5.0); CALCIUM 8.8 mg/dL (8.5-10.1)
[2021-09-16 11:25] LABS: CREATININE 0.8 mg/dL (0.55-1.3)
[2021-09-16 11:27] LABS: BILIRUBIN,TOTAL 0.4 mg/dL (0.2-1); TOT PROT 6.4 g/dl (6.4-8.2)
[2021-09-16] MEDS: diazePAM 5 MG TABLET PO PRN ×3 (12:05→21:54)
[2021-09-16] MEDS ORDERED: NALOXONE (NARCAN) HCL 4 MG/0.1 ML SPRAY NS SCH (12:45)
[2021-09-16] MEDS: amLODIPine BESYLATE 5 MG TABLET (FP) PO SCH (13:26)
[2021-09-16] MEDS ORDERED: cloNIDine HCL 0.1 MG TABLET PO PRN (14:25)
[2021-09-16] MEDS ORDERED: methaDONE HCL 10 MG TABLET (FOR DETOX USE ONLY) PO ONE (14:25)
[2021-09-16] MEDS: METHOCARBAMOL 500 MG TABLET PO PRN (17:45)
[2021-09-16] MEDS: hydrOXYzine PAMOATE 25 MG CAPSULE (FP) PO PRN ×2 (17:47→21:54)
[2021-09-16] MEDS: MELATONIN 5 MG TABLETS PO PRN (21:54)
[2021-09-16] MEDS: BACITRACIN 0.9 GM PACKET TP SCH (21:55)
[2021-09-17] MEDS ORDERED: methaDONE HCL 10 MG TABLET (FOR DETOX USE ONLY) ONE (09:20)
[2021-09-17] MEDS: amLODIPine BESYLATE 5 MG TABLET (FP) PO SCH (11:49)
[2021-09-17] MEDS: PRENATAL VITAMINS W/ FOLIC ACID TABLET (FP) PO SCH (11:49)
[2021-09-17] MEDS: BACITRACIN 0.9 GM PACKET TP SCH ×2 (11:49→21:55)
[2021-09-17] MEDS: diazePAM 5 MG TABLET PO PRN ×3 (11:50→21:55)
[2021-09-17] MEDS: METHOCARBAMOL 500 MG TABLET PO PRN (17:18)
[2021-09-17] MEDS: hydrOXYzine PAMOATE 25 MG CAPSULE (FP) PO PRN ×2 (17:18→21:55)
[2021-09-17] MEDS: MELATONIN 5 MG TABLETS PO PRN (21:54)
[2021-09-17] MEDS: THIAMINE HCL 100 MG TABLET (FP) PO SCH (21:55)
[2021-09-18] MEDS: amLODIPine BESYLATE 5 MG TABLET (FP) PO SCH (09:48)
[2021-09-18] MEDS: METHOCARBAMOL 500 MG TABLET PO PRN ×2 (09:48→23:04)
[2021-09-18] MEDS: diazePAM 5 MG TABLET PO PRN ×2 (09:54→18:59)
[2021-09-18] MEDS ORDERED: methaDONE HCL 10 MG TABLET (FOR DETOX USE ONLY) PO ONE (10:00)
[2021-09-18] MEDS: PRENATAL VITAMINS W/ FOLIC ACID TABLET (FP) PO SCH (11:08)
[2021-09-18] MEDS: BACITRACIN 0.9 GM PACKET TP SCH ×2 (11:08→23:05)
[2021-09-18] MEDS: hydrOXYzine PAMOATE 25 MG CAPSULE (FP) PO PRN ×2 (18:59→23:04)
[2021-09-18] MEDS: THIAMINE HCL 100 MG TABLET (FP) PO SCH (23:03)
[2021-09-18] MEDS: MELATONIN 5 MG TABLETS PO PRN (23:03)
[2021-09-19] MEDS: hydrOXYzine PAMOATE 25 MG CAPSULE (FP) PO PRN ×2 (05:54→09:52)
[2021-09-19] MEDS: METHOCARBAMOL 500 MG TABLET PO PRN ×2 (05:54→23:02)
[2021-09-19] MEDS ORDERED: cloNIDine HCL 0.1 MG TABLET PO ONE (07:30)
[2021-09-19] MEDS ORDERED: methaDONE HCL 10 MG TABLET (FOR DETOX USE ONLY) ONE (09:48)
[2021-09-19] MEDS: PRENATAL VITAMINS W/ FOLIC ACID TABLET (FP) PO SCH (09:51)
[2021-09-19] MEDS: amLODIPine BESYLATE 5 MG TABLET (FP) PO SCH (09:52)
[2021-09-19] MEDS: BACITRACIN 0.9 GM PACKET TP SCH ×2 (09:53→23:03)
[2021-09-19] MEDS: ACETAMINOPHEN 325 MG TABLET (FP) PO PRN (09:56)
[2021-09-19] MEDS: THIAMINE HCL 100 MG TABLET (FP) PO SCH (23:01)
[2021-09-19] MEDS: cloNIDine HCL 0.1 MG TABLET PO PRN (23:01)
[2021-09-20] MEDS: amLODIPine BESYLATE 10 MG TABLET (FP) PO SCH (07:34)
[2021-09-20] MEDS ORDERED: methaDONE HCL 10 MG TABLET (FOR DETOX USE ONLY) PO ONE (10:00)
[2021-09-20] MEDS: PRENATAL VITAMINS W/ FOLIC ACID TABLET (FP) PO SCH (10:55)
[2021-09-20] MEDS: METHOCARBAMOL 500 MG TABLET PO PRN ×2 (10:55→17:31)
[2021-09-20] MEDS: BACITRACIN 0.9 GM PACKET TP SCH ×2 (10:55→22:41)
[2021-09-20] MEDS: hydrOXYzine PAMOATE 25 MG CAPSULE (FP) PO PRN ×3 (10:56→22:27)
[2021-09-20] MEDS: cloNIDine HCL 0.1 MG TABLET PO PRN ×2 (17:31→22:28)
[2021-09-20] MEDS: THIAMINE HCL 100 MG TABLET (FP) PO SCH (22:27)
[2021-09-21] MEDS: amLODIPine BESYLATE 10 MG TABLET (FP) PO SCH (06:19)
[2021-09-21 09:41] VITALS: BP 106/75; PULSE 85; TEMP 96.9
[2021-09-21] MEDS: BACITRACIN 0.9 GM PACKET TP SCH (10:38)
[2021-09-21] MEDS: PRENATAL VITAMINS W/ FOLIC ACID TABLET (FP) PO SCH (10:39)
== END 2021-09-21 10:22 | disposition home or self-care (01) | DRG 773 ==
LOC: YASAS 17:33 → Y6N 22:59
PROVIDERS: ADMIT Allergy & Immunology; ATTEND Surgery
PROC: HZ2ZZZZ Detoxification Services for Substance Abuse Treatment (ICD-10-PCS; principal; 2021-09-15)
DX: F11.23 Opioid dependence with withdrawal (principal); F10.230 Alcohol dependence with withdrawal, uncomplicated; F14.20 Cocaine dependence, uncomplicated; F13.20 Sedative, hypnotic or anxiolytic dependence, uncomplicated; F15.10 Other stimulant abuse, uncomplicated; F12.10 Cannabis abuse, uncomplicated; F17.210 Nicotine dependence, cigarettes, uncomplicated; U07.1 COVID-19; B18.2 Chronic viral hepatitis C; Z88.8 Allergy status to other drugs, medicaments and biological substances; Z91.013 Allergy to seafood
CPT/HCPCS: 36415; 80053; 85027; 86780; C9803-CS; J0735; U0003; U0005

== ENCOUNTER 2021-10-12 14:03 | Inpatient (IN) | payer OTHER ==
[2021-10-12] MEDS ORDERED: MAGNESIUM HYDROX 2400MG/30ML ORAL SUSPENSION 30 ML CUP PO PRN (15:18)
[2021-10-12] MEDS ORDERED: LOPERAMIDE HCL 2 MG CAPSULE PO PRN (15:18)
[2021-10-12] MEDS ORDERED: ACETAMINOPHEN 325 MG TABLET (FP) PO PRN ×2 (15:18)
[2021-10-12] MEDS ORDERED: NALOXONE HCL (KLOXXADO) 8 MG SPRAY NS PRN (15:18)
[2021-10-12] MEDS ORDERED: MAG HYDROX/AL HYDROX/SIMETH 30 ML UNIT-DOSE CUP PO PRN (15:18)
[2021-10-12] MEDS ORDERED: ONDANSETRON *ODT* 4 MG TABLET SL PRN (15:18)
[2021-10-12] MEDS ORDERED: DICYCLOMINE HCL 10 MG CAPSULE PO PRN (15:18)
[2021-10-12] MEDS ORDERED: diazePAM 5 MG TABLET PO PRN (15:18)
[2021-10-12] MEDS ORDERED: IBUPROFEN 600 MG TABLET (FP) PO PRN (15:18)
[2021-10-12] MEDS ORDERED: BISMUTH SUBSALICYLATE 262 MG/15 ML BTL PO PRN (15:18)
[2021-10-12] MEDS ORDERED: MAGNESIUM CITRATE 300 ML BOTTLE PO PRN (15:18)
[2021-10-12] MEDS ORDERED: IBUPROFEN 400 MG TABLET (FP) PO PRN (15:18)
[2021-10-12] MEDS ORDERED: BENZOCAINE/MENTHOL (CHLORASEPTIC ) LOZENGE MM PRN (15:18)
[2021-10-12] MEDS ORDERED: cloNIDine HCL 0.1 MG TABLET PO PRN (15:18)
[2021-10-12] MEDS ORDERED: methaDONE HCL 10 MG TABLET (FOR DETOX USE ONLY) PO ONE ×2 (15:18→17:15)
[2021-10-12] MEDS ORDERED: NICOTINE 10 MG CARTRIDGE (INHALER) IH PRN (15:18)
[2021-10-12] MEDS ORDERED: METHOCARBAMOL 500 MG TABLET PO PRN (15:18)
[2021-10-12] MEDS: hydrOXYzine PAMOATE 25 MG CAPSULE (FP) PO SCH ×2 (17:37→22:46)
[2021-10-12] MEDS: diazePAM 5 MG TABLET PO SCH ×2 (17:37→22:47)
[2021-10-12] MEDS: PRENATAL VITAMINS W/ FOLIC ACID TABLET (FP) PO SCH (17:39)
[2021-10-12] MEDS: NICOTINE 14 MG/24 HOURS TOPICAL PATCH TD SCH (17:40)
[2021-10-12] MEDS: MELATONIN 5 MG TABLETS PO SCH (22:46)
[2021-10-12] MEDS: CLOTRIMAZOLE 1% CREAM TP SCH (22:46)
[2021-10-12] MEDS: THIAMINE HCL 100 MG TABLET (FP) PO SCH (22:46)
[2021-10-13] MEDS: diazePAM 5 MG TABLET PO SCH ×4 (06:41→23:03)
[2021-10-13] MEDS: hydrOXYzine PAMOATE 25 MG CAPSULE (FP) PO SCH ×5 (06:41→23:03)
[2021-10-13] MEDS ORDERED: methaDONE HCL 10 MG TABLET (FOR DETOX USE ONLY) ONE (09:41)
[2021-10-13 10:35] LABS: HEMATOCRIT 38.6 % (35.4-49); HEMOGLOBIN 12.8 GM/dL (11.7-16.9); MCH 28.6 pg (25.7-33.7); MCHC 33.3 g/dl (32.0-35.9); MEAN CELL VOLUME 86.1 fl (80-96); MEAN PLT VOLUME 8.4 fl (7.5-11.1); PLATELET COUNT 186 10^3/uL (134-434); RBC 4.48 M/mm3 (4.00-5.60); RDW 13.5 % (11.9-15.9); WHITE BLOOD COUNT 5.6 K/mm3 (4.0-10.0)
[2021-10-13 11:04] LABS: ALBUMIN 3.1 g/dl (3.4-5.0); BLOOD UREA NITROGEN 13.4 mg/dL (7-18); CALCIUM 8.7 mg/dL (8.5-10.1); TOT PROT 6.3 g/dl (6.4-8.2)
[2021-10-13] MEDS: NICOTINE 14 MG/24 HOURS TOPICAL PATCH TD SCH (11:06)
[2021-10-13] MEDS: CLOTRIMAZOLE 1% CREAM TP SCH ×2 (11:06→23:02)
[2021-10-13] MEDS: PRENATAL VITAMINS W/ FOLIC ACID TABLET (FP) PO SCH (11:06)
[2021-10-13 11:07] LABS: CREATININE 0.8 mg/dL (0.55-1.3)
[2021-10-13 11:09] LABS: BILIRUBIN,TOTAL 0.6 mg/dL (0.2-1)
[2021-10-13 14:12] VITALS: BP 143/81; PULSE 69; TEMP 97.1
[2021-10-13] MEDS: MELATONIN 5 MG TABLETS PO SCH (23:02)
[2021-10-13] MEDS: THIAMINE HCL 100 MG TABLET (FP) PO SCH (23:03)
[2021-10-14] MEDS ORDERED: diazePAM 5 MG TABLET PO SCH (06:00)
[2021-10-14] MEDS: hydrOXYzine PAMOATE 25 MG CAPSULE (FP) PO SCH ×2 (07:42→10:58)
[2021-10-14] MEDS ORDERED: methaDONE HCL 10 MG TABLET (FOR DETOX USE ONLY) PO ONE (10:00)
[2021-10-14] MEDS: NICOTINE 14 MG/24 HOURS TOPICAL PATCH TD SCH (10:58)
[2021-10-14] MEDS: CLOTRIMAZOLE 1% CREAM TP SCH (10:58)
[2021-10-14] MEDS: PRENATAL VITAMINS W/ FOLIC ACID TABLET (FP) PO SCH (10:58)
[2021-10-15] MEDS ORDERED: diazePAM 5 MG TABLET PO SCH (06:00)
[2021-10-16] MEDS ORDERED: diazePAM 5 MG TABLET PO ONE (06:00)
[2021-10-16] MEDS ORDERED: methaDONE HCL 10 MG TABLET (FOR DETOX USE ONLY) PO ONE (10:00)
== END 2021-10-14 10:49 | disposition left against medical advice (07) | DRG 770 ==
LOC: YASAS 14:03 → Y3N 16:03
PROVIDERS: ADMIT Allergy & Immunology; ATTEND Surgery
PROC: HZ2ZZZZ Detoxification Services for Substance Abuse Treatment (ICD-10-PCS; principal; 2021-10-12)
DX: F11.23 Opioid dependence with withdrawal (principal); F10.230 Alcohol dependence with withdrawal, uncomplicated; F14.20 Cocaine dependence, uncomplicated; F12.20 Cannabis dependence, uncomplicated; F17.213 Nicotine dependence, cigarettes, with withdrawal; I10 Essential (primary) hypertension; B18.2 Chronic viral hepatitis C; G47.00 Insomnia, unspecified; Z88.8 Allergy status to other drugs, medicaments and biological substances; Z91.013 Allergy to seafood; Z86.69 Personal history of other diseases of the nervous system and sense organs; Z59.00 Homelessness unspecified
CPT/HCPCS: 36415; 80053; 85027; 86780; 93005; 93010; C9803-CS; J0735; U0003; U0005

== ENCOUNTER 2021-11-19 17:52 | Inpatient (IN) | payer OTHER ==
[2021-11-19 18:52] VITALS: BMI 19.3
[2021-11-19] MEDS ORDERED: IBUPROFEN 600 MG TABLET (FP) PO PRN (19:54)
[2021-11-19] MEDS ORDERED: MAG HYDROX/AL HYDROX/SIMETH 30 ML UNIT-DOSE CUP PO PRN (19:54)
[2021-11-19] MEDS ORDERED: BENZOCAINE/MENTHOL (CHLORASEPTIC ) LOZENGE MM PRN (19:54)
[2021-11-19] MEDS ORDERED: LOPERAMIDE HCL 2 MG CAPSULE PO PRN (19:54)
[2021-11-19] MEDS ORDERED: BISMUTH SUBSALICYLATE 524 MG/30 ML PO PRN (19:54)
[2021-11-19] MEDS ORDERED: ACETAMINOPHEN 325 MG TABLET (FP) PO PRN ×2 (19:54)
[2021-11-19] MEDS ORDERED: MAGNESIUM CITRATE 300 ML BOTTLE PO PRN (19:54)
[2021-11-19] MEDS ORDERED: IBUPROFEN 400 MG TABLET (FP) PO PRN (19:54)
[2021-11-19] MEDS ORDERED: NICOTINE 10 MG CARTRIDGE (INHALER) IH PRN (19:54)
[2021-11-19] MEDS ORDERED: DICYCLOMINE HCL 10 MG CAPSULE PO PRN (19:54)
[2021-11-19] MEDS ORDERED: ONDANSETRON *ODT* 4 MG TABLET SL PRN (19:54)
[2021-11-19] MEDS ORDERED: METHOCARBAMOL 500 MG TABLET PO PRN (19:54)
[2021-11-19] MEDS ORDERED: MAGNESIUM HYDROX 2400MG/30ML ORAL SUSPENSION 30 ML CUP PO PRN (19:54)
[2021-11-19] MEDS ORDERED: methaDONE HCL 10 MG TABLET (FOR DETOX USE ONLY) PO ONE (20:12)
[2021-11-19] MEDS ORDERED: cloNIDine HCL 0.1 MG TABLET PO PRN (20:12)
[2021-11-19] MEDS ORDERED: diazePAM 5 MG TABLET PO PRN (20:12)
[2021-11-20] MEDS: diazePAM 5 MG TABLET PO SCH ×5 (02:58→23:04)
[2021-11-20] MEDS: levETIRAcetam 500 MG TABLET (FP) PO SCH ×3 (02:58→23:04)
[2021-11-20] MEDS: PRENATAL VITAMINS W/ FOLIC ACID TABLET (FP) PO SCH ×2 (02:58→10:43)
[2021-11-20] MEDS: THIAMINE HCL 100 MG TABLET (FP) PO SCH ×2 (02:58→23:04)
[2021-11-20] MEDS: hydrOXYzine PAMOATE 25 MG CAPSULE (FP) PO SCH ×6 (02:58→23:04)
[2021-11-20] MEDS: MELATONIN 5 MG TABLETS PO SCH ×2 (02:59→23:05)
[2021-11-21] MEDS: diazePAM 5 MG TABLET PO SCH ×3 (06:50→22:43)
[2021-11-21] MEDS: hydrOXYzine PAMOATE 25 MG CAPSULE (FP) PO SCH ×5 (06:50→22:43)
[2021-11-21] MEDS ORDERED: methaDONE HCL 10 MG TABLET (FOR DETOX USE ONLY) PO ONE (10:00)
[2021-11-21] MEDS: PRENATAL VITAMINS W/ FOLIC ACID TABLET (FP) PO SCH (11:06)
[2021-11-21] MEDS: levETIRAcetam 500 MG TABLET (FP) PO SCH ×2 (11:06→22:43)
[2021-11-21] MEDS: THIAMINE HCL 100 MG TABLET (FP) PO SCH (22:43)
[2021-11-21] MEDS: MELATONIN 5 MG TABLETS PO SCH (22:43)
[2021-11-22] MEDS: hydrOXYzine PAMOATE 25 MG CAPSULE (FP) PO SCH ×2 (05:42→10:55)
[2021-11-22] MEDS ORDERED: diazePAM 5 MG TABLET PO SCH (06:00)
[2021-11-22 09:21] VITALS: BP 169/124; PULSE 92; RESP 19; TEMP 97.5
[2021-11-22] MEDS: levETIRAcetam 500 MG TABLET (FP) PO SCH (10:55)
[2021-11-22] MEDS: PRENATAL VITAMINS W/ FOLIC ACID TABLET (FP) PO SCH (10:55)
[2021-11-23] MEDS ORDERED: diazePAM 5 MG TABLET PO ONE (06:00)
[2021-11-23] MEDS ORDERED: methaDONE HCL 10 MG TABLET (FOR DETOX USE ONLY) PO ONE (10:00)
== END 2021-11-22 12:05 | disposition left against medical advice (07) | DRG 770 ==
LOC: YASAS 17:52 → Y6N 21:43
PROVIDERS: ADMIT Allergy & Immunology; ATTEND Surgery
PROC: HZ2ZZZZ Detoxification Services for Substance Abuse Treatment (ICD-10-PCS; principal; 2021-11-19)
DX: F11.23 Opioid dependence with withdrawal (principal); F10.230 Alcohol dependence with withdrawal, uncomplicated; F14.20 Cocaine dependence, uncomplicated; F12.20 Cannabis dependence, uncomplicated; F15.10 Other stimulant abuse, uncomplicated; F17.210 Nicotine dependence, cigarettes, uncomplicated; I10 Essential (primary) hypertension; G40.909 Epilepsy, unspecified, not intractable, without status epilepticus; Z88.8 Allergy status to other drugs, medicaments and biological substances; Z91.013 Allergy to seafood; Z86.19 Personal history of other infectious and parasitic diseases; Z86.59 Personal history of other mental and behavioral disorders
CPT/HCPCS: 87811; C9803-CS; U0003; U0005

== ENCOUNTER 2022-01-24 01:45 | Inpatient (IN) | payer OTHER ==
[2022-01-24 03:25] VITALS: BMI 19.2
[2022-01-24] MEDS ORDERED: BISMUTH SUBSALICYLATE 524 MG/30 ML PO PRN (03:52)
[2022-01-24] MEDS ORDERED: ONDANSETRON *ODT* 4 MG TABLET SL PRN (03:52)
[2022-01-24] MEDS ORDERED: ACETAMINOPHEN 325 MG TABLET (FP) PO PRN ×2 (03:52)
[2022-01-24] MEDS ORDERED: BENZOCAINE/MENTHOL (CHLORASEPTIC ) LOZENGE MM PRN (03:52)
[2022-01-24] MEDS ORDERED: NALOXONE HCL (KLOXXADO) 8 MG SPRAY NS PRN (03:52)
[2022-01-24] MEDS ORDERED: IBUPROFEN 600 MG TABLET (FP) PO PRN (03:52)
[2022-01-24] MEDS ORDERED: MAGNESIUM HYDROX 2400MG/30ML ORAL SUSPENSION 30 ML CUP PO PRN (03:52)
[2022-01-24] MEDS ORDERED: IBUPROFEN 400 MG TABLET (FP) PO PRN (03:52)
[2022-01-24] MEDS ORDERED: NICOTINE 10 MG CARTRIDGE (INHALER) IH PRN (03:52)
[2022-01-24] MEDS ORDERED: DICYCLOMINE HCL 10 MG CAPSULE PO PRN (03:52)
[2022-01-24] MEDS ORDERED: MAGNESIUM CITRATE 300 ML BOTTLE PO PRN (03:52)
[2022-01-24] MEDS ORDERED: LOPERAMIDE HCL 2 MG CAPSULE PO PRN (03:52)
[2022-01-24] MEDS ORDERED: MAG HYDROX/AL HYDROX/SIMETH 30 ML UNIT-DOSE CUP PO PRN (03:52)
[2022-01-24] MEDS ORDERED: methaDONE HCL 10 MG TABLET (FOR DETOX USE ONLY) PO ONE (04:03)
[2022-01-24] MEDS: diazePAM 5 MG TABLET PO SCH ×4 (05:29→23:53)
[2022-01-24] MEDS: METHOCARBAMOL 500 MG TABLET PO PRN (05:32)
[2022-01-24] MEDS ORDERED: NICOTINE 21 MG/24 HOURS TOPICAL PATCH TD SCH (10:00)
[2022-01-24] MEDS: PRENATAL VITAMINS W/ FOLIC ACID TABLET (FP) PO SCH (10:34)
[2022-01-24] MEDS: NICOTINE 14 MG/24 HOURS TOPICAL PATCH TD SCH (10:34)
[2022-01-24 14:51] LABS: ALBUMIN 3.2 g/dl (3.4-5.0); BLOOD UREA NITROGEN 20.3 mg/dL (7-18)
[2022-01-24 14:52] LABS: CALCIUM 8.7 mg/dL (8.5-10.1)
[2022-01-24 14:55] LABS: BILIRUBIN,TOTAL 0.4 mg/dL (0.2-1); CREATININE 0.9 mg/dL (0.55-1.3); TOT PROT 6.6 g/dl (6.4-8.2)
[2022-01-24 15:01] LABS: HEMATOCRIT 38.5 % (35.4-49); MCH 27.8 pg (25.7-33.7); MCHC 31.3 g/dl (32.0-35.9); MEAN CELL VOLUME 88.9 fl (80-96); MEAN PLT VOLUME 7.6 fl (7.5-11.1); PLATELET COUNT 217 10^3/uL (134-434); RBC 4.33 M/mm3 (4.00-5.60); WHITE BLOOD COUNT 6.3 K/mm3 (4.0-10.0)
[2022-01-24] MEDS: MELATONIN 5 MG TABLETS PO SCH (23:49)
[2022-01-24] MEDS: THIAMINE HCL 100 MG TABLET (FP) PO SCH (23:50)
[2022-01-25] MEDS: diazePAM 5 MG TABLET PO SCH ×3 (06:38→21:37)
[2022-01-25] MEDS: PRENATAL VITAMINS W/ FOLIC ACID TABLET (FP) PO SCH (10:56)
[2022-01-25] MEDS: NICOTINE 14 MG/24 HOURS TOPICAL PATCH TD SCH (10:57)
[2022-01-25] MEDS: cloNIDine HCL 0.1 MG TABLET PO PRN (21:37)
[2022-01-25] MEDS: MELATONIN 5 MG TABLETS PO SCH (21:37)
[2022-01-25] MEDS: METHOCARBAMOL 500 MG TABLET PO PRN (21:37)
[2022-01-25] MEDS: THIAMINE HCL 100 MG TABLET (FP) PO SCH (21:38)
[2022-01-25] MEDS: diazePAM 5 MG TABLET PO PRN (23:44)
[2022-01-26] MEDS: diazePAM 5 MG TABLET PO SCH ×2 (06:29→18:25)
[2022-01-26] MEDS: cloNIDine HCL 0.1 MG TABLET PO PRN ×4 (06:59→22:57)
[2022-01-26] MEDS ORDERED: methaDONE HCL 10 MG TABLET (FOR DETOX USE ONLY) PO ONE (10:00)
[2022-01-26] MEDS: PRENATAL VITAMINS W/ FOLIC ACID TABLET (FP) PO SCH (10:41)
[2022-01-26] MEDS: METHOCARBAMOL 500 MG TABLET PO PRN (10:41)
[2022-01-26] MEDS: NICOTINE 14 MG/24 HOURS TOPICAL PATCH TD SCH (10:41)
[2022-01-26] MEDS: diazePAM 5 MG TABLET PO PRN ×2 (10:41→22:56)
[2022-01-26] MEDS: MELATONIN 5 MG TABLETS PO SCH (22:57)
[2022-01-26] MEDS: THIAMINE HCL 100 MG TABLET (FP) PO SCH (22:57)
[2022-01-27] MEDS ORDERED: diazePAM 5 MG TABLET PO ONE (06:00)
[2022-01-27 09:14] VITALS: TEMP 97.7
[2022-01-27] MEDS: NICOTINE 14 MG/24 HOURS TOPICAL PATCH TD SCH (10:56)
[2022-01-27] MEDS: PRENATAL VITAMINS W/ FOLIC ACID TABLET (FP) PO SCH (10:56)
[2022-01-27] MEDS ORDERED: diazePAM 5 MG TABLET PO PRN (10:58)
[2022-01-27] MEDS: METHOCARBAMOL 500 MG TABLET PO PRN (11:00)
[2022-01-27 13:25] VITALS: BP 143/105; PULSE 106; RESP 16
[2022-01-28] MEDS ORDERED: methaDONE HCL 10 MG TABLET (FOR DETOX USE ONLY) PO ONE (10:00)
== END 2022-01-27 18:10 | disposition left against medical advice (07) | DRG 770 ==
LOC: YASAS 01:45 → Y3N 04:09
PROVIDERS: ADMIT Allergy & Immunology; ATTEND Surgery
PROC: HZ2ZZZZ Detoxification Services for Substance Abuse Treatment (ICD-10-PCS; principal; 2022-01-24)
DX: F11.23 Opioid dependence with withdrawal (principal); F10.230 Alcohol dependence with withdrawal, uncomplicated; F14.20 Cocaine dependence, uncomplicated; F15.20 Other stimulant dependence, uncomplicated; F12.20 Cannabis dependence, uncomplicated; F17.210 Nicotine dependence, cigarettes, uncomplicated; F32.A Depression, unspecified; I10 Essential (primary) hypertension; Z86.19 Personal history of other infectious and parasitic diseases; Z88.8 Allergy status to other drugs, medicaments and biological substances; Z91.013 Allergy to seafood; Z56.0 Unemployment, unspecified; Z59.00 Homelessness unspecified
CPT/HCPCS: 36415; 80053; 85027; 86780; 93005; 93010; C9803-CS; U0003; U0005

== ENCOUNTER 2022-05-25 18:08 | Inpatient (IN) | payer OTHER ==
[2022-05-25 22:02] VITALS: BMI 18.1
[2022-05-25] MEDS ORDERED: guaiFENesin 200 MG/10 ML 10 ML UNIT-DOSE CUPS PO PRN (22:18)
[2022-05-25] MEDS ORDERED: ACETAMINOPHEN 325 MG TABLET (FP) PO PRN ×2 (22:18)
[2022-05-25] MEDS ORDERED: POLYETHYLENE GLYCOL (HEALTHYLAX) 3350 17 GM PACKET PO PRN (22:18)
[2022-05-25] MEDS ORDERED: P-EPHED 60MG/TRIPROLIDI 2.5MG TABLET PO PRN (22:18)
[2022-05-25] MEDS ORDERED: MAGNESIUM HYDROX 2400MG/30ML ORAL SUSPENSION 30 ML CUP PO PRN (22:18)
[2022-05-25] MEDS ORDERED: MAG HYDROX/AL HYDROX/SIMETH 30 ML UNIT-DOSE CUP PO PRN (22:18)
[2022-05-25] MEDS ORDERED: BISMUTH SUBSALICYLATE 524 MG/30 ML PO PRN (22:18)
[2022-05-25] MEDS ORDERED: NALOXONE HCL 0.4 MG/ML VIAL IM PRN (22:18)
[2022-05-25] MEDS ORDERED: DICYCLOMINE HCL 10 MG CAPSULE PO PRN (22:18)
[2022-05-25] MEDS ORDERED: MELATONIN 5 MG TABLETS PO PRN (22:18)
[2022-05-25] MEDS ORDERED: NICOTINE POLACRILEX 2 MG GUM BUC PRN (22:18)
[2022-05-25] MEDS ORDERED: NALOXONE HCL (KLOXXADO) 8 MG SPRAY NS PRN (22:18)
[2022-05-25] MEDS ORDERED: LOPERAMIDE HCL 2 MG CAPSULE PO PRN (22:18)
[2022-05-25] MEDS ORDERED: IBUPROFEN 400 MG TABLET (FP) PO PRN (22:18)
[2022-05-25] MEDS ORDERED: BENZOCAINE/MENTHOL (CHLORASEPTIC ) LOZENGE MM PRN (22:18)
[2022-05-25] MEDS ORDERED: ONDANSETRON *ODT* 4 MG TABLET SL PRN (22:18)
[2022-05-25] MEDS ORDERED: SIMETHICONE 80 MG TAB.CHEW (FP) PO PRN (23:38)
[2022-05-26] MEDS ORDERED: levETIRAcetam 500 MG TABLET (FP) PO ONE (03:16)
[2022-05-26] MEDS: levETIRAcetam 500 MG TABLET (FP) PO SCH ×3 (03:18→22:59)
[2022-05-26] MEDS: cloNIDine HCL 0.1 MG TABLET PO PRN ×2 (04:18→17:53)
[2022-05-26] MEDS: diazePAM 5 MG TABLET PO PRN ×3 (04:18→23:05)
[2022-05-26] MEDS: METHOCARBAMOL 500 MG TABLET PO PRN (04:18)
[2022-05-26] MEDS ORDERED: cloNIDine HCL 0.1 MG TABLET PO ONE (06:36)
[2022-05-26] MEDS ORDERED: methaDONE HCL 10 MG TABLET (FOR DETOX USE ONLY) PO ONE (09:35)
[2022-05-26] MEDS: PRENATAL VITAMINS W/ FOLIC ACID TABLET (FP) PO SCH (10:33)
[2022-05-26 13:45] LABS: HEMATOCRIT 39.1 % (35.4-49); HEMOGLOBIN 13.2 GM/dL (11.7-16.9); MCH 28.9 pg (25.7-33.7); MCHC 33.8 g/dl (32.0-35.9); MEAN CELL VOLUME 85.7 fl (80-96); MEAN PLT VOLUME 7.2 fl (7.5-11.1); PLATELET COUNT 261 10^3/uL (134-434); RBC 4.57 M/mm3 (4.00-5.60); RDW 13.6 % (11.9-15.9); WHITE BLOOD COUNT 7.2 K/mm3 (4.0-10.0)
[2022-05-26 14:20] LABS: CALCIUM 9.2 mg/dL (8.5-10.1)
[2022-05-26 14:22] LABS: BLOOD UREA NITROGEN 14.4 mg/dL (7-18)
[2022-05-26 14:24] LABS: BILIRUBIN,TOTAL 0.3 mg/dL (0.2-1); TOT PROT 6.6 g/dl (6.4-8.2)
[2022-05-26 14:25] LABS: CREATININE 0.7 mg/dL (0.55-1.3)
[2022-05-26] MEDS: IBUPROFEN 600 MG TABLET (FP) PO PRN (18:05)
[2022-05-26] MEDS: THIAMINE HCL 100 MG TABLET (FP) PO SCH (23:00)
[2022-05-27] MEDS: levETIRAcetam 500 MG TABLET (FP) PO SCH ×2 (10:42→21:43)
[2022-05-27] MEDS: PRENATAL VITAMINS W/ FOLIC ACID TABLET (FP) PO SCH (10:42)
[2022-05-27] MEDS: METHOCARBAMOL 500 MG TABLET PO PRN (10:42)
[2022-05-27] MEDS: cloNIDine HCL 0.1 MG TABLET PO PRN ×2 (13:15→16:56)
[2022-05-27] MEDS: hydrOXYzine PAMOATE 25 MG CAPSULE (FP) PO PRN (13:16)
[2022-05-27] MEDS: diazePAM 5 MG TABLET PO PRN ×3 (13:16→21:43)
[2022-05-27] MEDS: amLODIPine BESYLATE 5 MG TABLET (FP) PO SCH (19:25)
[2022-05-27] MEDS: THIAMINE HCL 100 MG TABLET (FP) PO SCH (21:43)
[2022-05-27] MEDS: IBUPROFEN 600 MG TABLET (FP) PO PRN (21:43)
[2022-05-28] MEDS: cloNIDine HCL 0.1 MG TABLET PO PRN ×3 (01:56→18:07)
[2022-05-28] MEDS: amLODIPine BESYLATE 5 MG TABLET (FP) PO SCH (09:55)
[2022-05-28] MEDS: PRENATAL VITAMINS W/ FOLIC ACID TABLET (FP) PO SCH (09:55)
[2022-05-28] MEDS: METHOCARBAMOL 500 MG TABLET PO PRN ×2 (09:55→18:08)
[2022-05-28] MEDS: levETIRAcetam 500 MG TABLET (FP) PO SCH ×2 (09:55→22:44)
[2022-05-28] MEDS ORDERED: methaDONE HCL 10 MG TABLET (FOR DETOX USE ONLY) PO ONE (10:00)
[2022-05-28] MEDS: IBUPROFEN 600 MG TABLET (FP) PO PRN (18:08)
[2022-05-28] MEDS: hydrOXYzine PAMOATE 25 MG CAPSULE (FP) PO PRN (18:08)
[2022-05-28] MEDS: diazePAM 5 MG TABLET PO PRN (18:08)
[2022-05-28] MEDS: THIAMINE HCL 100 MG TABLET (FP) PO SCH (22:44)
[2022-05-29] MEDS: cloNIDine HCL 0.1 MG TABLET PO PRN (06:21)
[2022-05-29 07:47] VITALS: BP 150/100; PULSE 87; RESP 17; TEMP 97.3
[2022-05-29] MEDS: levETIRAcetam 500 MG TABLET (FP) PO SCH (11:11)
[2022-05-29] MEDS: PRENATAL VITAMINS W/ FOLIC ACID TABLET (FP) PO SCH (11:12)
[2022-05-29] MEDS: amLODIPine BESYLATE 5 MG TABLET (FP) PO SCH (11:12)
[2022-05-30] MEDS ORDERED: methaDONE HCL 10 MG TABLET (FOR DETOX USE ONLY) PO ONE (10:00)
== END 2022-05-29 11:20 | disposition left against medical advice (07) | DRG 770 ==
LOC: YASAS 18:08 → Y6N 05-26 03:44 → UNDOADMIN 05-26 03:44
PROVIDERS: ADMIT Allergy & Immunology; ATTEND Surgery
PROC: HZ2ZZZZ Detoxification Services for Substance Abuse Treatment (ICD-10-PCS; principal; 2022-05-26)
DX: F11.23 Opioid dependence with withdrawal (principal); F15.20 Other stimulant dependence, uncomplicated; F17.210 Nicotine dependence, cigarettes, uncomplicated; I10 Essential (primary) hypertension; B18.2 Chronic viral hepatitis C; R50.9 Fever, unspecified; R56.9 Unspecified convulsions; R53.1 Weakness
CPT/HCPCS: 36415; 80053; 82962; 85027; 86780; 87811; C9803-CS; U0003; U0005

== ENCOUNTER 2023-05-13 00:48 | Inpatient (IN) | payer OTHER ==
[2023-05-13 01:07] VITALS: BMI 21.1
[2023-05-13 03:03] LABS: BASO % 0.5 % (0-2.0); EOS % 0.6 % (0-4.5); HEMATOCRIT 36.8 % (35.4-49); HEMOGLOBIN 12.3 GM/dL (11.7-16.9); LYMPH % 33.4 % (8-40); MCH 27.3 pg (25.7-33.7); MCHC 33.4 g/dl (32.0-35.9); MEAN CELL VOLUME 81.6 fl (80-96); MEAN PLT VOLUME 7.1 fl (7.5-11.1); MONO % 7.4 % (3.8-10.2); NEUT % 58.1 % (42.8-82.8); PLATELET COUNT 335 10^3/uL (134-434); RBC 4.51 M/mm3 (4.00-5.60); RDW 14.1 % (11.9-15.9); WHITE BLOOD COUNT 8.9 K/mm3 (4.0-10.0)
[2023-05-13 03:13] LABS: POTASSIUM 5.5 mmol/L (3.5-5.1)
[2023-05-13] MEDS ORDERED: methaDONE HCL 10 MG TABLET ONE ×2 (03:13→06:02)
[2023-05-13 03:16] LABS: ALBUMIN 3.4 g/dl (3.4-5.0); BLOOD UREA NITROGEN 83.9 mg/dL (7-18)
[2023-05-13 03:19] LABS: CREATININE 2.5 mg/dL (0.55-1.3)
[2023-05-13 03:20] LABS: BILIRUBIN,TOTAL 0.2 mg/dL (0.2-1); TOT PROT 7.7 g/dl (6.4-8.2)
[2023-05-13] MEDS ORDERED: SODIUM CHLORIDE 0.9% 500 ML INFUS.BAG IV ONE (03:37)
[2023-05-13 03:52] LABS: ERYTHROCYTE SEDIMENTATION RATE 75 mm/hr (0-10)
[2023-05-13] MEDS ORDERED: VANCOMYCIN HCL 1,500 MG in DEXTROSE 5%-WATER - 500 ML IVPB ONE (03:55)
[2023-05-13] MEDS ORDERED: LORazepam 2 MG TABLET PO SCH (05:00)
[2023-05-13] MEDS ORDERED: SODIUM CHLORIDE 1,000 ML IV SCH (05:15)
[2023-05-13] MEDS ORDERED: diazePAM CARPU-JECT 10 MG/2 ML DISP.SYRIN IVPUSH ONE (05:24)
[2023-05-13] MEDS ORDERED: diazePAM CARPU-JECT 10 MG/2 ML DISP.SYRIN ONE (05:25)
[2023-05-13] MEDS ORDERED: VANCOMYCIN 500 MG VIAL (RESTRICTED TO ID ONLY) ONE (05:32)
[2023-05-13] MEDS ORDERED: VANCOMYCIN 1 GRAM (PRE-DOCKED) 1,000 MG/250 ML BAG IVPB ONE (05:32)
[2023-05-13] MEDS ORDERED: methaDONE HCL 10 MG TABLET (FOR DETOX USE ONLY) PO ONE (05:55)
[2023-05-13] MEDS ORDERED: LORazepam 1 MG TABLET PO PRN (05:55)
[2023-05-13] MEDS ORDERED: methaDONE HCL 10 MG TABLET PO ONE (05:55)
[2023-05-13] MEDS: HEPARIN NA (PORCINE) 5,000 UNITS/ML 1ML VIAL SQ SCH ×3 (06:22→23:01)
[2023-05-13] MEDS: SODIUM CHLORIDE 1,000 ML IV SCH ×2 (06:22→19:04)
[2023-05-13 07:39] LABS: BASO % 0.4 % (0-2.0); EOS % 0.9 % (0-4.5); HEMATOCRIT 32.5 % (35.4-49); LYMPH % 43.2 % (8-40); MCH 27.9 pg (25.7-33.7); MEAN CELL VOLUME 82.2 fl (80-96); MEAN PLT VOLUME 7.1 fl (7.5-11.1); MONO % 8.1 % (3.8-10.2); NEUT % 47.4 % (42.8-82.8); PLATELET COUNT 251 10^3/uL (134-434); RBC 3.95 M/mm3 (4.00-5.60); WHITE BLOOD COUNT 7.2 K/mm3 (4.0-10.0)
[2023-05-13 07:59] LABS: POTASSIUM 5.4 mmol/L (3.5-5.1)
[2023-05-13] MEDS ORDERED: FOLIC ACID INJECTION - 1 MG, THIAMINE HCL 100 MG, MULTIVIT INJECTION ADULT 10 ML in SOD... IVPB ONE (08:00)
[2023-05-13 08:02] LABS: ALBUMIN 2.7 g/dl (3.4-5.0); BLOOD UREA NITROGEN 75.8 mg/dL (7-18); CALCIUM 8.1 mg/dL (8.5-10.1); MAGNESIUM 2.4 mg/dL (1.8-2.4)
[2023-05-13 08:05] LABS: CREATININE 1.7 mg/dL (0.55-1.3); PHOSPHOROUS 4.6 mg/dL (2.5-4.9)
[2023-05-13 08:07] LABS: TOT PROT 6.2 g/dl (6.4-8.2)
[2023-05-13 08:27] LABS: BILIRUBIN,TOTAL 0.2 mg/dL (0.2-1)
[2023-05-13] MEDS ORDERED: NICOTINE 14 MG/24 HOURS TOPICAL PATCH TD ONE (10:54)
[2023-05-13] MEDS: NICOTINE 14 MG/24 HOURS TOPICAL PATCH TD SCH (10:57)
[2023-05-13] MEDS ORDERED: LORazepam 1 MG TABLET ONE ×3 (11:29→22:55)
[2023-05-13] MEDS: LORazepam 1 MG TABLET PO SCH ×3 (11:34→23:01)
[2023-05-13] MEDS ORDERED: HEPARIN NA (PORCINE) 5,000 UNITS/ML 1ML VIAL ONE ×2 (14:34→22:54)
[2023-05-14] MEDS: HEPARIN NA (PORCINE) 5,000 UNITS/ML 1ML VIAL SQ SCH ×4 (05:52→22:13)
[2023-05-14] MEDS: LORazepam 1 MG TABLET PO SCH ×4 (05:52→22:14)
[2023-05-14] MEDS: SODIUM CHLORIDE 1,000 ML IV SCH (06:00)
[2023-05-14] MEDS: VANCOMYCIN PREMIX 1.5 GM 1,500 MG/300 ML BAG IVPB SCH (06:28)
[2023-05-14] MEDS: NICOTINE 14 MG/24 HOURS TOPICAL PATCH TD SCH (10:01)
[2023-05-14] MEDS ORDERED: SODIUM CHLORIDE 1,000 ML IV SCH (16:30)
[2023-05-15] MEDS ORDERED: LORazepam 0.5 MG TABLET PO PRN
[2023-05-15] MEDS: LORazepam 0.5 MG TABLET PO SCH ×4 (04:45→22:00)
[2023-05-15] MEDS: VANCOMYCIN PREMIX 1.5 GM 1,500 MG/300 ML BAG IVPB SCH (05:15)
[2023-05-15] MEDS: cloNIDine HCL 0.1 MG TABLET PO PRN ×2 (06:30→21:14)
[2023-05-15] MEDS: HEPARIN NA (PORCINE) 5,000 UNITS/ML 1ML VIAL SQ SCH ×3 (06:31→21:14)
[2023-05-15] MEDS ORDERED: methaDONE HCL 10 MG TABLET PO ONE ×2 (10:00→13:00)
[2023-05-15] MEDS: NICOTINE 14 MG/24 HOURS TOPICAL PATCH TD SCH (12:43)
[2023-05-15] MEDS: BACITRACIN ZINC 15 GM TUBE TOPICAL OINTMENT TP SCH (13:40)
[2023-05-15] MEDS: CEFAZOLIN 1 GM in DEXTROSE 5%-WATER - 50 ML IVPB SCH ×2 (13:40→17:42)
[2023-05-15] MEDS ORDERED: MELATONIN 5 MG TABLETS PO ONE (21:19)
[2023-05-16] MEDS ORDERED: ACETAMINOPHEN 325 MG TABLET (FP) PO ONE (01:14)
[2023-05-16] MEDS: CEFAZOLIN 1 GM in DEXTROSE 5%-WATER - 50 ML IVPB SCH ×3 (01:22→17:20)
[2023-05-16] MEDS ORDERED: LORazepam 0.5 MG TABLET PO ONE (05:00)
[2023-05-16] MEDS: HEPARIN NA (PORCINE) 5,000 UNITS/ML 1ML VIAL SQ SCH ×3 (05:24→21:17)
[2023-05-16] MEDS: VANCOMYCIN PREMIX 1.5 GM 1,500 MG/300 ML BAG IVPB SCH (05:44)
[2023-05-16] MEDS: BACITRACIN ZINC 15 GM TUBE TOPICAL OINTMENT TP SCH (09:41)
[2023-05-16] MEDS: amLODIPine BESYLATE 5 MG TABLET (FP) PO SCH (09:42)
[2023-05-16] MEDS: NICOTINE 14 MG/24 HOURS TOPICAL PATCH TD SCH (09:52)
[2023-05-16 12:05] LABS: BASO % 0.5 % (0-2.0); EOS % 0.8 % (0-4.5); HEMOGLOBIN 13.7 GM/dL (11.7-16.9); LYMPH % 38.6 % (8-40); MCH 26.8 pg (25.7-33.7); MCHC 32.7 g/dl (32.0-35.9); MEAN CELL VOLUME 82.2 fl (80-96); MEAN PLT VOLUME 7.2 fl (7.5-11.1); MONO % 5.5 % (3.8-10.2); NEUT % 54.6 % (42.8-82.8); PLATELET COUNT 288 10^3/uL (134-434); RBC 5.11 M/mm3 (4.00-5.60); RDW 13.6 % (11.9-15.9); WHITE BLOOD COUNT 8.7 K/mm3 (4.0-10.0)
[2023-05-16 12:19] LABS: POTASSIUM 4.3 mmol/L (3.5-5.1)
[2023-05-16 12:22] LABS: MAGNESIUM 1.8 mg/dL (1.8-2.4)
[2023-05-16 12:26] LABS: PHOSPHOROUS 3.4 mg/dL (2.5-4.9)
[2023-05-16 12:27] LABS: BILIRUBIN,TOTAL 0.4 mg/dL (0.2-1); TOT PROT 7.7 g/dl (6.4-8.2)
[2023-05-16 12:29] LABS: ALBUMIN 3.3 g/dl (3.4-5.0); CALCIUM 10.1 mg/dL (8.5-10.1)
[2023-05-17] MEDS ORDERED: MELATONIN 5 MG TABLETS PO ONE (01:00)
[2023-05-17] MEDS: CEFAZOLIN 1 GM in DEXTROSE 5%-WATER - 50 ML IVPB SCH ×2 (01:03→10:57)
[2023-05-17] MEDS: HEPARIN NA (PORCINE) 5,000 UNITS/ML 1ML VIAL SQ SCH ×2 (05:22→14:55)
[2023-05-17] MEDS ORDERED: HYDROCHLOROTHIAZIDE 25 MG TABLET (FP) PO SCH (10:00)
[2023-05-17] MEDS ORDERED: methaDONE HCL 10 MG TABLET PO ONE (10:00)
[2023-05-17] MEDS: amLODIPine BESYLATE 5 MG TABLET (FP) PO SCH (10:57)
[2023-05-17] MEDS: BACITRACIN ZINC 15 GM TUBE TOPICAL OINTMENT TP SCH (11:00)
[2023-05-17] MEDS: NICOTINE 14 MG/24 HOURS TOPICAL PATCH TD SCH (11:00)
[2023-05-17 15:08] VITALS: BP 138/110; PULSE 89; RESP 14; TEMP 99.1
== END 2023-05-17 16:16 | disposition other institution (70) | DRG 383 ==
LOC: JER 00:48 → JERBED 04:52 → J4W 05-14 00:40
PROVIDERS: ADMIT Internal Medicine; ATTEND Internal Medicine
DX: L02.512 Cutaneous abscess of left hand (principal); I24.89 Other forms of acute ischemic heart disease; N17.9 Acute kidney failure, unspecified; I38 Endocarditis, valve unspecified; E87.5 Hyperkalemia; B18.2 Chronic viral hepatitis C; F10.10 Alcohol abuse, uncomplicated; F11.23 Opioid dependence with withdrawal; F17.210 Nicotine dependence, cigarettes, uncomplicated; I16.0 Hypertensive urgency; L03.114 Cellulitis of left upper limb; M79.5 Residual foreign body in soft tissue; M79.642 Pain in left hand; R63.4 Abnormal weight loss; Z59.00 Homelessness unspecified
CPT/HCPCS: 36415; 71046-TC-FY; 73130-TC-LT-FY; 73200-TC-RT; 76775-TC; 80053; 82550; 83735; 84100; 84484; 85025; 85651; 87040; 87070; 87205; 93005; 93010; 93306-TC; 99285-25; G0480; J1644

== ENCOUNTER 2023-05-18 22:33 | Emergency (ER) | payer OTHER ==
[2023-05-18 22:54] VITALS: BP 148/98; PULSE 111; RESP 20; TEMP 98.5; BMI 21.2
[2023-05-19] MEDS ORDERED: AMOX TR/POT CLAV 875MG/125MG TABLETS (FP) PO ONE (00:10)
== END 2023-05-19 00:33 | disposition left against medical advice (07) ==
LOC: JER 22:33
DX: Z48.01 Encounter for change or removal of surgical wound dressing (principal)
CPT/HCPCS: 93005; 93010; 99283-25

== ENCOUNTER 2023-05-19 00:57 | Observation (INO) | payer OTHER ==
[2023-05-19 01:09] VITALS: BMI 21.2
[2023-05-19] MEDS ORDERED: AMOX TR/POT CLAV 875MG/125MG TABLETS (FP) ONE (03:05)
[2023-05-19] MEDS: AMOX TR/POT CLAV 875MG/125MG TABLETS (FP) PO ONE (03:10)
[2023-05-19 04:40] LABS: BASO % 0.4 % (0-2.0); EOS % 0.7 % (0-4.5); HEMATOCRIT 38.3 % (35.4-49); HEMOGLOBIN 12.7 GM/dL (11.7-16.9); LYMPH % 29.1 % (8-40); MCH 27.1 pg (25.7-33.7); MCHC 33.1 g/dl (32.0-35.9); MEAN CELL VOLUME 81.8 fl (80-96); MEAN PLT VOLUME 7.6 fl (7.5-11.1); MONO % 6.3 % (3.8-10.2); NEUT % 63.5 % (42.8-82.8); PLATELET COUNT 279 10^3/uL (134-434); RBC 4.67 M/mm3 (4.00-5.60); RDW 13.7 % (11.9-15.9); WHITE BLOOD COUNT 14.5 K/mm3 (4.0-10.0)
[2023-05-19 04:45] LABS: INR 1.02 (0.83-1.09); PROTHROMBIN TIME (PATIENT) 11.8 SEC (9.7-13.0)
[2023-05-19 04:48] LABS: ACTIVATED PTT 33.9 SECONDS (25.2-36.5)
[2023-05-19 05:19] LABS: POTASSIUM 4.2 mmol/L (3.5-5.1)
[2023-05-19 05:21] LABS: CALCIUM 9.6 mg/dL (8.5-10.1); ERYTHROCYTE SEDIMENTATION RATE 39 mm/hr (0-10)
[2023-05-19 05:22] LABS: ALBUMIN 3.7 g/dl (3.4-5.0); BLOOD UREA NITROGEN 38.4 mg/dL (7-18)
[2023-05-19 05:25] LABS: CREATININE 1.2 mg/dL (0.55-1.3)
[2023-05-19 05:27] LABS: BILIRUBIN,TOTAL 0.4 mg/dL (0.2-1); TOT PROT 7.9 g/dl (6.4-8.2)
[2023-05-19] MEDS ORDERED: AMPICILLIN NA/SULBACTAM NA 3 GM VIAL ONE ×2 (12:22→21:03)
[2023-05-19] MEDS: AMPICILLIN NA/SULBACTAM NA 3 GM in SODIUM CHLORIDE 100 ML IVPB SCH (12:30)
[2023-05-19] MEDS ORDERED: HEPARIN NA (PORCINE) 5,000 UNITS/ML 1ML VIAL ONE ×2 (15:03→22:15)
[2023-05-19] MEDS: HEPARIN NA (PORCINE) 5,000 UNITS/ML 1ML VIAL SQ SCH (15:06)
[2023-05-20] MEDS ORDERED: AMPICILLIN NA/SULBACTAM NA 3 GM VIAL ONE ×3 (02:46→13:50)
[2023-05-20] MEDS ORDERED: IBUPROFEN 400 MG TABLET (FP) PO PRN (09:57)
[2023-05-20] MEDS ORDERED: methaDONE HCL 10 MG TABLET ONE (10:51)
[2023-05-20] MEDS ORDERED: HYDROCHLOROTHIAZIDE 25 MG TABLET (FP) ONE (10:51)
[2023-05-20] MEDS ORDERED: LISINOPRIL 20 MG TABLET ONE (10:51)
[2023-05-20] MEDS: LISINOPRIL 20 MG TABLET PO SCH (10:57)
[2023-05-20] MEDS: HYDROCHLOROTHIAZIDE 25 MG TABLET (FP) PO SCH (10:57)
[2023-05-20 11:46] LABS: BASO % 0.4 % (0-2.0); EOS % 0.7 % (0-4.5); HEMATOCRIT 37.5 % (35.4-49); HEMOGLOBIN 12.6 GM/dL (11.7-16.9); LYMPH % 29.7 % (8-40); MCH 27.5 pg (25.7-33.7); MCHC 33.6 g/dl (32.0-35.9); MEAN CELL VOLUME 81.9 fl (80-96); MEAN PLT VOLUME 7.6 fl (7.5-11.1); MONO % 4.7 % (3.8-10.2); NEUT % 64.5 % (42.8-82.8); PLATELET COUNT 238 10^3/uL (134-434); RBC 4.57 M/mm3 (4.00-5.60); RDW 13.8 % (11.9-15.9); WHITE BLOOD COUNT 6.1 K/mm3 (4.0-10.0)
[2023-05-20 18:57] VITALS: BP 143/100; PULSE 75; RESP 18; TEMP 99
== END 2023-05-20 19:35 | disposition home or self-care (01) ==
LOC: JER 00:57 → JERBED 05:46
PROVIDERS: ADMIT Internal Medicine; ATTEND Internal Medicine
PROC: 3E03329 Introduction of Other Anti-infective into Peripheral Vein, Percutaneous Approach (ICD-10-PCS; principal; 2023-05-19)
PROC: 3E023GC Introduction of Other Therapeutic Substance into Muscle, Percutaneous Approach (ICD-10-PCS; 2023-05-19)
DX: L03.114 Cellulitis of left upper limb (principal); F14.20 Cocaine dependence, uncomplicated; F12.20 Cannabis dependence, uncomplicated; F15.10 Other stimulant abuse, uncomplicated; I38 Endocarditis, valve unspecified; I10 Essential (primary) hypertension; F17.200 Nicotine dependence, unspecified, uncomplicated; M62.82 Rhabdomyolysis; R10.9 Unspecified abdominal pain; G89.29 Other chronic pain; Z59.00 Homelessness unspecified; B18.2 Chronic viral hepatitis C; N39.9 Disorder of urinary system, unspecified; M54.50 Low back pain, unspecified; Z91.013 Allergy to seafood; Z88.8 Allergy status to other drugs, medicaments and biological substances; R56.9 Unspecified convulsions
CPT/HCPCS: 0241U-QW; 36415; 80053; 84484; 85025; 85610; 85651; 85730; 86140; 93005; 93010; 96365; 96372; 99285-25; G0378; J1644

== ENCOUNTER 2024-01-10 21:13 | Inpatient (IN) | payer OTHER ==
[2024-01-10 22:48] VITALS: BMI 19.3
[2024-01-10] MEDS ORDERED: NICOTINE POLACRILEX 2 MG LOZENGE BC PRN (23:06)
[2024-01-10] MEDS ORDERED: ONDANSETRON *ODT* 4 MG TABLET SL PRN (23:06)
[2024-01-10] MEDS ORDERED: BENZOCAINE/MENTHOL (CHLORASEPTIC ) LOZENGE MM PRN (23:06)
[2024-01-10] MEDS ORDERED: NICOTINE POLACRILEX 2 MG GUM BUC PRN (23:06)
[2024-01-10] MEDS ORDERED: LOPERAMIDE HCL 2 MG CAPSULE PO PRN (23:06)
[2024-01-10] MEDS ORDERED: IBUPROFEN 600 MG TABLET (FP) PO PRN (23:06)
[2024-01-10] MEDS ORDERED: ACETAMINOPHEN 325 MG TABLET (FP) PO PRN (23:06)
[2024-01-10] MEDS ORDERED: MAG HYDROX/AL HYDROX/SIMETH 30 ML UNIT-DOSE CUP PO PRN (23:06)
[2024-01-10] MEDS ORDERED: NALOXONE (NARCAN) HCL 4 MG/0.1 ML SPRAY NS PRN (23:06)
[2024-01-10] MEDS ORDERED: IBUPROFEN 400 MG TABLET (FP) PO PRN (23:06)
[2024-01-10] MEDS ORDERED: MAGNESIUM HYDROX 2400MG/30ML ORAL SUSPENSION 30 ML CUP PO PRN (23:06)
[2024-01-10] MEDS ORDERED: NALOXONE HCL 0.4 MG/ML VIAL IM PRN (23:06)
[2024-01-10] MEDS ORDERED: P-EPHED 60MG/TRIPROLIDI 2.5MG TABLET PO PRN (23:06)
[2024-01-10] MEDS ORDERED: guaiFENesin 600 MG TABLET.ER (FP) PO PRN (23:06)
[2024-01-10] MEDS ORDERED: BENZONATATE 200 MG CAPSULE PO PRN (23:06)
[2024-01-10] MEDS ORDERED: DICYCLOMINE HCL 10 MG CAPSULE PO PRN (23:06)
[2024-01-10] MEDS ORDERED: BISMUTH SUBSALICYLATE 524 MG/30 ML PO PRN (23:06)
[2024-01-10] MEDS ORDERED: POLYETHYLENE GLYCOL (HEALTHYLAX) 3350 17 GM PACKET PO PRN (23:06)
[2024-01-11] MEDS: METOPROLOL TARTRATE 25 MG TABLET (FP) PO ONE (00:33)
[2024-01-11] MEDS: SULFAMETHOXAZOLE/TRIMETHOPRIM 800MG/160MG D.S. TABLET PO SCH (00:43)
[2024-01-11] MEDS: cloNIDine HCL 0.1 MG TABLET PO PRN (01:23)
[2024-01-11] MEDS: hydrOXYzine PAMOATE 25 MG CAPSULE (FP) PO PRN (01:23)
[2024-01-11] MEDS ORDERED: PATIENT'S OWN MEDICATION (NON-FORMULARY) (Lisinopril/Hydrochlorothiazide [Lisinopril-Hctz PO SCH (10:00)
[2024-01-11] MEDS: LISINOPRIL 20 MG TABLET PO SCH (10:00)
[2024-01-11] MEDS: HYDROCHLOROTHIAZIDE 25 MG TABLET (FP) PO SCH (10:00)
[2024-01-11] MEDS: PRENATAL VITAMINS W/ FOLIC ACID TABLET (FP) PO SCH (10:00)
[2024-01-11] MEDS: methaDONE HCL 10 MG TABLET PO ONE (10:01)
[2024-01-11] MEDS: cloNIDine HCL 0.1 MG TABLET PO SCH (10:01)
[2024-01-11 11:29] LABS: HEMATOCRIT 35.5 % (35.4-49); HEMOGLOBIN 11.9 GM/dL (11.7-16.9); MCH 27.7 pg (25.7-33.7); MCHC 33.4 g/dl (32.0-35.9); MEAN PLT VOLUME 7.3 fl (7.5-11.1); PLATELET COUNT 213 10^3/uL (134-434); RBC 4.28 M/mm3 (4.00-5.60); RDW 14.4 % (11.9-15.9); WHITE BLOOD COUNT 7.1 K/mm3 (4.0-10.0)
[2024-01-11] MEDS ORDERED: methaDONE HCL 10 MG TABLET PO PRN (11:33)
[2024-01-11 13:10] LABS: CHLORIDE 103 mmol/L (98-107); POTASSIUM 3.6 mmol/L (3.5-5.1); SODIUM 137 mmol/L (136-145)
[2024-01-11 13:17] LABS: SGOT/AST 23 U/L (15-37); SGPT/ALT 27 U/L (13-61)
[2024-01-11 13:18] LABS: CREATININE 0.6 mg/dL (0.55-1.3)
[2024-01-11 13:19] LABS: BILIRUBIN,TOTAL 0.6 mg/dL (0.2-1); TOT PROT 6.5 g/dl (6.4-8.2)
[2024-01-11 13:20] LABS: ALK PHOS 83 U/L (45-117)
[2024-01-11 13:55] LABS: ALBUMIN 3.2 g/dl (3.4-5.0); ANION GAP 6 mmol/L (4-13); CO2 28 mmol/L (21-32); GLUCOSE,RANDOM 86 mg/dL (74-106)
[2024-01-11] MEDS: THIAMINE 100 MG TABLET PO SCH (22:07)
[2024-01-11] MEDS: MELATONIN 5 MG TABLETS PO SCH (22:07)
[2024-01-12] MEDS: methaDONE 40 MG, methaDONE 10 MG PO ONE (09:41)
[2024-01-13] MEDS ORDERED: cloNIDine HCL 0.1 MG TABLET PO PRN
[2024-01-13] MEDS: methaDONE 40 MG, methaDONE 20 MG PO ONE (09:45)
[2024-01-13] MEDS: diazePAM 5 MG TABLET PO PRN (09:47)
[2024-01-14] MEDS: methaDONE 40 MG, methaDONE 30 MG PO ONE (09:51)
[2024-01-14] MEDS: METHOCARBAMOL 500 MG TABLET PO PRN (15:24)
[2024-01-15] MEDS: methaDONE HCL 40 MG DISPERSABLE TABLET PO ONE (09:15)
[2024-01-16 09:30] VITALS: BP 106/69; PULSE 90; RESP 17; TEMP 98
[2024-01-16] MEDS: methaDONE 80 MG, methaDONE 10 MG PO ONE (09:33)
== END 2024-01-16 09:45 | disposition home or self-care (01) | DRG 773 ==
LOC: YASAS 21:13 → Y3N 23:50
PROVIDERS: ADMIT Allergy & Immunology; ATTEND Surgery
PROC: HZ2ZZZZ Detoxification Services for Substance Abuse Treatment (ICD-10-PCS; principal; 2024-01-10)
DX: F11.23 Opioid dependence with withdrawal (principal); F14.20 Cocaine dependence, uncomplicated; F15.20 Other stimulant dependence, uncomplicated; F12.20 Cannabis dependence, uncomplicated; F17.210 Nicotine dependence, cigarettes, uncomplicated; I10 Essential (primary) hypertension; Z88.8 Allergy status to other drugs, medicaments and biological substances
CPT/HCPCS: 36415; 80053; 80305; 80307; 85027; 86780